=== PATIENT | male | born 1940 | race Caucasian/White ===

== ENCOUNTER 2016-10-19 17:52 | Emergency (ER) | payer BC ==
[~2016-10-19 17:52] MED LIST: ACYC-223 PO; AMLO2.5T PO; ASPI81TA28 PO; ATOR-22 PO; CALC500C3 PO; LISI-461 PO; LORA-741 PO; METO25TA3 PO; NTRGSL/4 UT; PRT/20 PO; RANI300T2 PO; TAMS0.4C38 PO
[2016-10-19 17:56] VITALS: TEMP 36.5
[2016-10-19] MEDS ORDERED: [UNRECOGNIZED DRUG - OTHER] PO (18:26)
--- NOTE | 2016-10-19 19:47 | DIAGNOSTIC IMAGING REPORT ---
LEFT FOREARM 2 VIEWS ROUTINE CLINICAL HISTORY: Left forearm pain status post trauma COMPARISON: None. DISCUSSION: No acute fractures are visualized. There are no subluxations. There is a prominent olecranon spur. IMPRESSION: Olecranon spur. No acute fractures identified Electronically signed by: Brandon Gauthier M.D. 10/19/2016 7:46 PM Dictated Date/Time: 10/19/2016 7:45 PM
[2016-10-19] MEDS ORDERED: NORCO 5/325MG HOME PACK PO ONE (20:45)
[2016-10-19 21:12] VITALS: BP 122/63; PULSE 59; O2SAT 97
--- NOTE | 2016-10-20 00:29 | EMERGENCY ROOM VISIT NOTE ---
History First contact with patient: 18:08 Chief Complaint: WRIST PAIN Stated Complaint: FALL,HURT LF ARM,IN CLINICAL TRIAL History of Present Illness The patient is a 75 year old male who presents to the Emergency Room with complaints of left forearm pain after falling at home earlier today. The patient states that he was trying to unfold a card table, when he lost his balance, fell, and struck his forearm. The patient did not strike his head or have laceration. He is without distinct pain of his wrist or elbow. His pain is essentially limited to the forearm itself. He does not have a history of injury to this area in the past. He rates his discomfort a 5/10. Review of Systems More than 10 systems were reviewed and otherwise negative with the exception of history of present illness. 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 (4) Esophageal Reflux (5) History Of Tobacco Use (6) Hypertension Nos (7) Personal History Of Colonic Polyps Surgical Problems: (1) H/O adenoidectomy (2) H/O hernia repair (3) History of tonsillectomy (4) Hx of appendectomy Family History Diabetes mellitus FATHER Heart disease FATHER (passed at age 74 from [place]) Stroke FATHER Social History Smoking Status: Former Smoker Alcohol Use: occasionally Drug Use: none Marital Status: Housing Status: lives with family Occupation Status: employed Current/Historical Medications Scheduled Acyclovir (Zovirax), 800 MG PO DAILY Aspirin (Aspirin Ec), 81 MG PO DAILY Atorvastatin (Lipitor), 20 MG PO DAILY Calcium Carbonate (Tums), 1 TAB PO DAILY Lisinopril (Zestril), 5 MG PO DAILY Metoprolol Succ (Toprol Xl) (Toprol-Xl), 25 MG PO DAILY Nitroglycerin (Nitrostat), 0.4 MG UT PRN Ranitidine Hcl (Zantac), 300 MG PO HS Tamsulosin Hcl (Flomax), 0.4 MG PO DAILY [[id number]], 1 CAP PO Q12 Scheduled PRN Lorazepam (Ativan), 0.5 MG PO BID PRN for Anxiety Allergies Coded Allergies: No Known Allergies (Verified Allergy, Unknown, 08/30/06) Physical Exam Vital Signs Date Time Temp Pulse Resp B/P (MAP) Pulse Ox O2 Delivery O2 Flow Rate FiO2 10/19/16 21:12 59 18 122/63 97 10/19/16 19:50 52 18 120/59 98 Room Air 10/19/16 17:56 36.5 59 20 151/80 97 Room Air Pain Rating (0-10): 3.0 Physical Exam VITALS: Vitals are noted on the nurse's note and reviewed by myself. Vital signs stable. GENERAL: Well-developed, well-nourished, white male, who is in no acute distress and resting comfortably. Patient is cooperative with the examination. HEAD: Normocephalic atraumatic. HEART: Regular rate and rhythm without murmurs gallops or rubs. LUNGS: Clear to auscultation bilaterally without wheezes, rales or rhonchi. No retractions or accessory muscle use. MUSCULOSKELETAL: Positive tenderness over the anterior left forearm. No significant laceration, abrasion, or contusion appreciated. No tenderness of the left elbow or wrist. No other injuries noted. Neurovascular status is intact distally. NEURO: Patient was alert and oriented to person place and time. CN II through XII grossly intact. Medical Decision & Procedures ER Provider Diagnostic Interpretation: LEFT FOREARM 2 VIEWS ROUTINE CLINICAL HISTORY: Left forearm pain status post trauma COMPARISON: None. DISCUSSION: No acute fractures are visualized. There are no subluxations. There is a prominent olecranon spur. IMPRESSION: Olecranon spur. No acute fractures identified Medications Administered Medications (Trade) Dose Ordered Sig/Xiomara Route Start Time Stop Time Status Last Admin Dose Admin Acetaminophen/ Hydrocodone Bitart (Harmony 5/325mg Home Pack) 1 homepack UD ONCE PO 10/19/16 20:45 10/19/16 20:46 DC 10/19/16 21:10 1 HOMEPACK ED Course Physical exam and history were performed. Nursing notes and EMR were reviewed. Patient appears to have follow-up at home and suffered injury to his forearm. X -ray was obtained and does not show evidence of acute fracture or dislocation. Overall the patient appears well and his exam is fairly benign. The patient will be treated conservatively with a home pack of Vicodin. He is to follow with his primary care physician with any ongoing or persistent symptoms. He was otherwise invited back to the ER anytime and rated his discomfort a 1/10 at the time of departure. The chart was completed utilizing Dragon Speech Voice Recognition Software. Grammatical errors, random word insertions, pronoun errors, and incomplete sentences are an occasional consequence of this system due to software limitations, ambient noise, and hardware issues. Any formal questions or concerns about the content, text, or information contained within the body of this dictation should be directly addressed to the provider for clarification. . Medical Decision Differential diagnoses includes, but is not limited to: Sprain, strain, fracture , dislocation, subluxation, contusion, and others Impression Primary Impression: Injury of left forearm Departure Information Dispostion Home / Self-Care Condition GOOD Forms HOME CARE DOCUMENTATION FORM, IMPORTANT VISIT INFORMATION Patient Instructions My [facility] Additional Instructions You were seen and evaluated today on an emergency basis only. This is not a substitute for, or an effort to provide, complete comprehensive medical care. It is not possible to recognize and treat all injuries or illnesses in a single emergency department visit. For this reason it is recommended that you followup with your primary care physician this week with any ongoing or persistent symptoms. Harmony (hydrocodone/acetaminophen) 5/325 mg (homepack) every 6 hours as needed for worsening breakthrough pain. Do not drink or drive on Harmony. This medication will likely make you tired. Do not take Harmony and Tylenol at the same time as both contain acetaminophen. Harmony may cause constipation. You may wish to take an [id number] stool softener like Colace if this occurs. You are welcome to return to the emergency department anytime with new, worsening, or concerning symptoms.
[2016-10-28] MEDS ORDERED: ZNTT/150 PO (13:42)
[2016-10-28] MEDS ORDERED: ACET325T96 PO (13:43)
[2016-12-07] MEDS ORDERED: RXC5 PO (08:18)
[2016-12-07] MEDS ORDERED: ASPEC325 PO (08:18)
[2017-01-19] MEDS ORDERED: SULF800T23 PO (15:56)
[2017-01-19] MEDS ORDERED: CEPH500C2 PO (15:56)
== END 2016-10-19 21:12 | disposition home or self-care (01) ==
LOC: C.EDB 17:54 → C.EDD 21:12
DX: S59.912A Unspecified injury of left forearm, initial encounter (principal); W18.39XA Other fall on same level, initial encounter; W22.8XXA Striking against or struck by other objects, initial encounter; Y93.89 Activity, other specified; Y99.8 Other external cause status; Y92.009 Unspecified place in unspecified non-institutional (private) residence as the place of occurrence of the external cause; C91.90 Lymphoid leukemia, unspecified not having achieved remission; K21.9 Gastro-esophageal reflux disease without esophagitis; I25.10 Atherosclerotic heart disease of native coronary artery without angina pectoris; I10 Essential (primary) hypertension; Z86.010 Personal history of colon polyps; Z87.891 Personal history of nicotine dependence; Z90.89 Acquired absence of other organs; Z98.890 Other specified postprocedural states; Z79.82 Long term (current) use of aspirin; Z79.899 Other long term (current) drug therapy

== ENCOUNTER 2016-12-05 05:31 | Inpatient (IN) | payer BC, OTHER ==
[2016-10-28 13:44] VITALS: Ht 167.6 cm; Wt 76.5 kg
--- NOTE | 2016-10-28 14:24 | PAT Medication Instructions ---
Service Date Oct 28, 2016. Current Home Medication List Acetaminophen Tab (Tylenol), 325 MG PO PRN Acyclovir (Zovirax), 400 MG PO BID Aspirin (Aspirin Ec), 81 MG PO QPM Atorvastatin (Lipitor), 20 MG PO QPM Calcium Carbonate (Tums), 1 TAB PO DAILY PRN for PRN Lisinopril (Zestril), 5 MG PO QPM Lorazepam (Ativan), 0.5 MG PO BID PRN for Anxiety Metoprolol Succ (Toprol Xl) (Toprol-Xl), 25 MG PO QPM Nitroglycerin (Nitrostat), 0.4 MG UT PRN Ranitidine (Zantac), 150 MG PO BID Tamsulosin Hcl (Flomax), 0.4 MG PO QPM [[id number]], 1 CAP PO Q12 Medication Instructions For Your Scheduled Surgery - Hold the following medications 2 weeks prior to surgery: [[id number]], 1 CAP PO Q12 - Hold the following medications the morning of surgery: Ranitidine (Zantac), 150 MG PO BID Calcium Carbonate (Tums), 1 TAB PO DAILY PRN for PRN - Take the following medications the morning of surgery with a sip of water: Nitroglycerin (Nitrostat), 0.4 MG UT PRN (if needed) Lorazepam (Ativan), 0.5 MG PO BID PRN for Anxiety (if needed) Acetaminophen Tab (Tylenol), 325 MG PO PRN (if needed) Acyclovir (Zovirax), 400 MG PO BID (takes per clinical trial with [id number]) - Hold the following medications as scheduled the night before surgery: Lisinopril (Zestril), 5 MG PO QPM - Take the following medications as scheduled the night before surgery: Tamsulosin Hcl (Flomax), 0.4 MG PO QPM Ranitidine (Zantac), 150 MG PO BID Metoprolol Succ (Toprol Xl) (Toprol-Xl), 25 MG PO QPM Nitroglycerin (Nitrostat), 0.4 MG UT PRN (if needed) Lorazepam (Ativan), 0.5 MG PO BID PRN for Anxiety (if needed) Calcium Carbonate (Tums), 1 TAB PO DAILY PRN for PRN (if needed) Atorvastatin (Lipitor), 20 MG PO QPM Aspirin (Aspirin Ec), 81 MG PO QPM (okay to take continue per surgeon) Acetaminophen Tab (Tylenol), 325 MG PO PRN (if needed) Acyclovir (Zovirax), 400 MG PO BID (takes per clinical trial with [id number]) If you have any questions please call us at [phone] or [phone] or [phone]
[2016-10-28 15:42] LABS: URINE APPEARANCE CLEAR (CLEAR); URINE BILIRUBIN NEG (NEG); URINE COLOR YELLOW; URINE NITRITE NEG (NEG); URINE PH 5.5 (4.5-7.5); URINE SPECIFIC GRAVITY 1.019 (1.000-1.030); UROBILINOGEN NEG (NEG)
[2016-10-28 15:45] LABS: PARTIAL THROMBOPLASTIN RATIO 1.1; PROTHROMBIN TIME (PATIENT) 11.1 SECONDS (9.0-12.0)
[2016-10-28 15:49] LABS: MANUAL MICROSCOPIC REQUIRED? NO; REVIEW REQ? NO
[2016-10-28 16:21] LABS: BUN/CREATININE RATIO 10.8 (10-20); CALCIUM 8.8 mg/dl (8.5-10.1); CREATININE 1.6 mg/dl (0.60-1.40); POTASSIUM 4.4 mmol/L (3.5-5.1)
[2016-10-28 16:37] LABS: HEMATOCRIT 45.5 % (42-52); LYMPH ABS # 6.37 K/uL (1.2-3.4); LYMPHOCYTE % 75.7 %; MEAN CELL VOLUME 99.3 fL (80-100); MEAN CORPUSCULAR HEMOGLOBIN 35.2 pg (25-34); MEAN CORPUSCULAR HGB CONC 35.4 g/dl (32-36); NEUTROPHILS % 22.6 %; PLATELET COUNT 133 K/uL (130-400); RED BLOOD COUNT 4.58 M/uL (4.7-6.1); WHITE BLOOD COUNT 8.42 K/uL (4.8-10.8)
[2016-10-28 16:42] LABS: SMUDGE CELLS PRESENT
[2016-10-28 17:14] LABS: COMPLETE YES
[2016-10-29 07:42] LABS: HYPERSEGMENTED POLYS 1+
--- NOTE | 2016-12-04 16:04 | HISTORY & PHYSICAL EXAMINATION ---
DATE OF ADMISSION: 12/05/2016 CHIEF COMPLAINT: Primary osteoarthritis of the left hip. HISTORY OF PRESENT ILLNESS: Tom is a very pleasant 76-year-old male who has been dealing with a several year history of increasing left hip pain. It hurts him when he goes up and down stairs and get in and out of a low car or when he internally rotates his hip to put on his shoes. He has been treated by primary care physician and had x-rays which showed advanced osteoarthritis of his hip. After failing conservative treatment, he elected to proceed with a left total hip arthroplasty. PAST MEDICAL HISTORY: Significant for heart disease, CLL, hypertension, hyperlipidemia, aortic valve disorder, CVA, TIA, and GERD. MEDICATIONS: Tylenol 325 mg as needed, acyclovir 400 mg twice a day, aspirin 81 mg daily, Lipitor 20 mg daily, Tums 1 tab as needed, Zestril 5 mg daily, Ativan 0.5 mg twice a day as needed, Toprol-XL 25 mg daily, Nitrostat 0.4 mg as needed, Zantac 150 mg twice a day, Flomax 0.4 mg at night. PAST SURGICAL HISTORY: Significant for hernia repair and appendectomy, tonsillectomy, and 3 cardiac stents placed. ALLERGIES: None. FAMILY HISTORY: Noncontributory. SOCIAL HISTORY: The patient is , has 6 kids, rarely drinks, and is moderately active. REVIEW OF SYSTEMS: He complains of left hip and groin pain. All other pertinent review of systems is negative. PHYSICAL EXAMINATION: GENERAL: He is awake, alert and oriented x3. He is in no apparent distress. He is very pleasant. HEENT: Pupils are equal, round and reactive to light. Extraocular motion intact. Oral mucosa is pink and moist. HEART: Regular rate per radial pulse. LUNGS: Arielle symmetrically bilaterally with no audible breath sounds. ABDOMEN: Soft, nontender, nondistended. MUSCULOSKELETAL: On physical examination of the left hip, he has a lot of tenderness to deep palpation of the left groin. He has very limited internal and external rotation. He has significant pain with forced internal rotation of his hip. His leg lengths are essentially equal. IMAGING DATA: X-rays from an outside institution show advanced osteoarthritis of the left hip. There is joint space narrowing and osteophyte formation. IMPRESSION: Advanced osteoarthritis, left hip. PLAN: We will proceed with a Biomet taper lock left total hip arthroplasty. Postoperatively, he will be started on aspirin for DVT prophylaxis and likely kept 2 midnights for postoperative medical management.
[2016-12-05] VITALS (12 sets, daily range): BP systolic 93–130; BP diastolic 54–69; PULSE 58–79; TEMP 36.3–36.8; O2SAT 95–100
[~2016-12-05] VITALS: Ht 167.6 cm; Wt 76.5 kg
[~2016-12-05 05:31] MED LIST changes: +ACET325T96 PO; -ACYC-223 PO; +ACYC-251 PO; -AMLO2.5T PO; -PRT/20 PO; -RANI300T2 PO; +ZNTT/150 PO; +[UNRECOGNIZED DRUG - OTHER] PO
[2016-12-05] MEDS ORDERED: TRANEXAMIC ACID INJ 1,000 MG in SODIUM CHLORIDE 0.9% 100ML 100 ML IV SCH (06:00)
[2016-12-05] MEDS ORDERED: LACTATED RINGER'S 1000ML 1,000 ML IV SCH (06:00)
[2016-12-05] MEDS ORDERED: GABAPENTIN 300 MG CAP PO SCH (06:00)
[2016-12-05] MEDS ORDERED: FAMOTIDINE 20 MG TAB PO SCH (06:00)
[2016-12-05] MEDS ORDERED: CEFAZOLIN 2000 MG/60 ML D5W 60 ML IV SCH (06:00)
[2016-12-05] MEDS ORDERED: LACTATED RINGER'S 1000ML IV SCH (06:00)
[2016-12-05] MEDS ORDERED: ROPIVACAINE 5MG/ML 30 ML 150 MG, BUPIVACAINE/EPINEPHR 0.5% MPF 30 ML, KETOROLAC TROMETH... INFIL SCH ×7 (06:00)
[2016-12-05] MEDS ORDERED: ACETAMINOPHEN 500 MG TAB PO SCH (06:00)
[2016-12-05] MEDS ORDERED: FENTANYL CITRATE INJ 50 MCG/1 ML 2 ML VIAL IV PRN (06:15)
[2016-12-05] MEDS ORDERED: HYDROmorphone INJ 1 MG/ML SYR IV PRN (06:15)
[2016-12-05] MEDS ORDERED: ONDANSETRON INJ 2 MG/ML 2 ML VIAL IV PRN ×2 (06:15→09:15)
[2016-12-05] MEDS ORDERED: EpHEDrine SULFATE INJ 50 MG/ML AMP IV PRN (06:15)
[2016-12-05] MEDS ORDERED: ATROPINE SULFATE 0.1 MG/ML 5ML SYR IV PRN (06:15)
--- NOTE | 2016-12-05 06:44 | History & Physical Bridge Note ---
H&P Re-Evaluation Bridge Note: I have examined the patient, reviewed the History & Physical and in the interval since the performance of the History & Physical I have noted the following changes of clinical significance: No changes noted
[2016-12-05] MEDS ORDERED: FENTANYL CITRATE INJ 50 MCG/1 ML 2 ML VIAL ONE (06:57)
[2016-12-05] MEDS ORDERED: MIDAZOLAM HCL 1 MG/ML 2ML VIAL ONE ×2 (06:57→07:54)
[2016-12-05] MEDS ORDERED: BUPIVACAINE 0.5 % 5 MG/1 ML PF 10ML VIAL ONE (07:14)
[2016-12-05] MEDS ORDERED: PROPOFOL IV EMULSION 10 MG/ML 20 ML VIAL IV ONE (07:16)
[2016-12-05] MEDS ORDERED: ONDANSETRON INJ 2 MG/ML 2 ML VIAL ONE (07:21)
[2016-12-05] MEDS ORDERED: BACITRACIN 50000 UNIT VIAL ONE (07:26)
[2016-12-05] MEDS ORDERED: ORTHO JOINT ANESTHETIC ONE (07:26)
[2016-12-05] MEDS ORDERED: PHENYLEPHRINE 100MCG/ML 5ML SYR ONE (07:28)
[2016-12-05] MEDS ORDERED: EpHEDrine SULFATE 50MG/5ML SYR ONE (08:05)
[2016-12-05] MEDS ORDERED: METOCLOPRAMIDE HCL INJ 5 MG/ML 2 ML VIAL IV PRN (09:15)
[2016-12-05] MEDS ORDERED: CALCIUM CARBONATE 500 MG CHEWABLE PO PRN (09:15)
[2016-12-05] MEDS ORDERED: NITROGLYCERIN 0.4 MG SL PER TAB CHARGE UT PRN (09:15)
[2016-12-05] MEDS ORDERED: LORAZEPAM 0.5 MG TAB PO PRN (09:15)
[2016-12-05] MEDS ORDERED: BISACODYL 10 MG SUPP PR PRN (09:15)
[2016-12-05] MEDS ORDERED: SILVER SULFADIAZINE 1% CR 50 GM JAR EXT PRN (09:15)
[2016-12-05] MEDS ORDERED: SOD PHOSPHATE/SOD BIPHOSPHATE ENEMA 132 ML BTL PR PRN (09:15)
[2016-12-05] MEDS ORDERED: MAGNESIUM HYDROXIDE SUSP 30 ML UDC PO PRN (09:15)
[2016-12-05] MEDS ORDERED: MoRPHine SULFATE 2 MG/ML CARP IV PRN (09:15)
--- NOTE | 2016-12-05 09:15 | [facility] Post Operative Brief Note ---
Immediate Operative Summary Operative Date Dec 05, 2016. Pre-Operative Diagnosis Advanced osteoarthritis, left hip Post-Operative Diagnosis Advanced osteoarthritis, left hip Procedure(s) Performed Left Anterior Total Hip Arthroplasty Surgeon Dr. Schwartz Transportation Job Titles Surgeon(s) Simone Hugo PA-C Estimated Blood Loss 250cc Findings as above Specimens A. Left femoral head Complication(s) None Disposition Recovery Room / PACU
--- NOTE | 2016-12-05 09:20 | DIAGNOSTIC IMAGING REPORT ---
LEFT HIP OR FILMS CLINICAL HISTORY: LEFT ANTERIOR TOTAL HIP ARTHROPLASTY COMPARISON STUDY: Pelvis radiograph September 22, 2016. FLUOROSCOPY TIME: 39.3 seconds. FINDINGS: A single intraoperative AP fluoroscopic image of the left hip demonstrates anatomic alignment of the left hip arthroplasty. There is an acetabular screw. No fracture or unexpected radiopaque foreign body is identified. IMPRESSION: Expected findings following total left hip arthroplasty. Electronically signed by: Sorin Smith M.D. 12/05/2016 9:19 AM Dictated Date/Time: 12/05/2016 9:17 AM
--- NOTE | 2016-12-05 09:50 | Anesthesiology Progress Note ---
Anesthesia Post Op Note Date & Time Dec 05, 2016 at 09:49 Vital Signs Pain Intensity: 0 Vital Signs Past 12 Hours Date Time Temp Pulse Resp B/P (MAP) Pulse Ox O2 Delivery O2 Flow Rate FiO2 12/05/16 09:45 66 16 92/52 98 Oxymask 2 12/05/16 09:35 65 16 108/62 98 Oxymask 10 12/05/16 09:25 76 16 104/49 100 Oxymask 10 12/05/16 09:17 36.2 61 16 118/62 100 Oxymask 10 12/05/16 06:12 36.8 76 18 130/69 95 Room Air Notes Mental Status: alert / awake / arousable, participated in evaluation Pt Amnestic to Procedure: Yes Nausea / Vomiting: adequately controlled Pain: adequately controlled Airway Patency, RR, SpO2: stable & adequate BP & HR: stable & adequate Hydration State: stable & adequate Neuraxial Anesthesia: was administered, sensory block is resolving Anesthetic Complications: no major complications apparent
--- NOTE | 2016-12-05 09:50 | OPERATIVE REPORT ---
DATE OF OPERATION: 12/05/2016 PREOPERATIVE DIAGNOSIS: Primary osteoarthritis of the left hip. POSTOPERATIVE DIAGNOSIS: Same. PROCEDURE: Left anterior total hip arthroplasty. SURGEON: Dr. Simone Schwartz. ACTIVITIES ATTENDANT: Simone Perez PA-C whose assistance was necessary to help with retraction. ANESTHESIA: Spinal. COMPLICATIONS: None. CONDITION: Stable to PACU. IMPLANTS USED: I used a Biomet Taperloc total hip arthroplasty with a size 52 mm G7 cup, a single 20 mm screw with a 36 mm neutral E1 poly liner and a 13 mm standard offset pressfit Taperloc stem and a 36 mm 0 neck ceramic head. INDICATIONS: Tom is a pleasant 76-year-old male who presented to my office with complaints of chronic left hip and groin pain. X-rays and clinical examination were diagnostic for primary osteoarthritis of the left hip. After failing conservative treatment, he elected to undergo a left total hip arthroplasty. OPERATION AND FINDINGS: On 12/05/2016 he arrived at [facility] for the above procedure. He was seen in the preoperative holding area and the operative extremity was identified and signed. He was given a preoperative antibiotic and a spinal anesthetic. He was taken back to the operating room, laid on the table in supine position and given basic sedation. The left leg was brought out to a Purist leg positioner. The left hip was then prepped and draped in sterile fashion. Time-out was done and the patient and operative extremity was properly identified. An anterior approach was used. Dissection was taken down to the tensor and the tensor was retracted laterally and the sartorius was retracted medially. The circumflex vessels were ligated and the reflected head of the rectus was elevated off the anterior capsule. A capsulotomy was then done and the femoral head was exposed. The femoral neck was then resected and the head was removed. The acetabulum was then exposed. Time was spent doing a complete circumferential capsular labral release. Sequential reaming was then done under fluoroscopy up to a size 51 reamer. A 52 mm cup was then impacted into place. A single 20 mm screw was placed. A 36 E1 neutral liner was then snapped into place. The surrounding soft tissues were then injected with 100 mL of orthopedic pain control cocktail. The proximal femur was then exposed with use of Purist leg positioner. Sequential broaching up to a size 13 broach was done. A standard head and neck assembly was applied. The hip was reduced and checked under fluoroscopy and I was happy with the size of the implant and the leg lengths. The hip was dislocated and the broach was removed. The final size 13 Taperloc stem was impacted into place. A 36 ceramic 0 neck was then impacted into place. The hip was reduced and final fluoroscopic images showed anatomic alignment. The wound was then irrigated. The capsule was then repaired using #1 Vicryl suture. A drain was placed. The total joint was irrigated with 3 liters of normal saline solution with bacitracin. The fascia was then closed with #1 Vicryl, skin was closed with 2-0 Vicryl and 3-0 V-Loc suture and a Prineo dressing. He was then placed in a soft dressing and taken to the postanesthesia care unit in stable condition. He tolerated the procedure well. I attest to the content of the Intraoperative Record and any orders documented therein. Any exception s are noted below.
[2016-12-05] MEDS: SODIUM CHLORIDE 0.9% 1000ML 1,000 ML IV SCH ×2 (11:18→18:29)
[2016-12-05] MEDS: ACETAMINOPHEN IV 1,000 MG in EMPTY BAG 0 ML IV SCH ×2 (11:47→20:49)
[2016-12-05] MEDS: KETOROLAC TROMETHAMINE 15 MG/ML VIAL IV. SCH ×3 (11:50→23:29)
--- NOTE | 2016-12-05 12:24 | DIAGNOSTIC IMAGING REPORT ---
LEFT PELVIS/UNILATERAL HIP 1 VIEW CLINICAL HISTORY: Left hip osteoarthritis. Arthroplasty. COMPARISON: Pelvis radiograph September 12, 2016. FINDINGS: Alignment of the total left hip arthroplasty is anatomic. There is no fracture or unexpected radiopaque foreign body. Acetabular screw is in place. There is a surgical drain. Cortical thickening of the bilateral femoral shafts is chronic. IMPRESSION: Expected findings following total left hip arthroplasty. Electronically signed by: Sorin Smith M.D. 12/05/2016 12:23 PM Dictated Date/Time: 12/05/2016 12:22 PM
[2016-12-05] MEDS: CEFAZOLIN IV 1,000 MG in DEXTROSE 5% 50ML 50 ML IV SCH ×2 (15:05→21:43)
[2016-12-05] MEDS: RANITIDINE HCL 150 MG TAB PO SCH (19:40)
[2016-12-05] MEDS: LISINOPRIL 5 MG TAB PO SCH (20:48)
[2016-12-05] MEDS: OXYCODONE HCL IR 5 MG TAB (IMMEDIATE RELEASE) PO PRN (20:48)
[2016-12-05] MEDS: ACYCLOVIR 400 MG TAB PO SCH (20:48)
[2016-12-05] MEDS: ASPIRIN 325 MG ECTAB PO SCH (20:49)
[2016-12-05] MEDS: TAMSULOSIN HCL 0.4 MG CAP PO SCH (20:49)
[2016-12-05] MEDS: SENNA 8.6 MG TAB PO SCH (20:49)
[2016-12-05] MEDS: DOCUSATE SODIUM 100 MG CAP PO SCH (20:49)
[2016-12-05] MEDS: METOPROLOL SUCC 25MG EXT REL TAB PO SCH (20:49)
[2016-12-05] MEDS: ATORVASTATIN 20 MG TAB PO SCH (20:50)
[2016-12-06 03:36] VITALS: BP 105/58; PULSE 71; TEMP 37; O2SAT 95
[2016-12-06] MEDS: SODIUM CHLORIDE 0.9% 1000ML 1,000 ML IV SCH (04:33)
[2016-12-06] MEDS: ACETAMINOPHEN IV 1,000 MG in EMPTY BAG 0 ML IV SCH (04:33)
[2016-12-06] MEDS: KETOROLAC TROMETHAMINE 15 MG/ML VIAL IV. SCH ×3 (05:40→20:04)
[2016-12-06 06:28] LABS: HEMATOCRIT 35.1 % (42-52); MEAN CELL VOLUME 98.3 fL (80-100); MEAN CORPUSCULAR HEMOGLOBIN 32.8 pg (25-34); MEAN CORPUSCULAR HGB CONC 33.3 g/dl (32-36); RED BLOOD COUNT 3.57 M/uL (4.7-6.1); WHITE BLOOD COUNT 3.89 K/uL (4.8-10.8)
[2016-12-06 06:58] LABS: COMPLETE YES; EOS % 0.5 %; HYPERSEGMENTED POLYS 1+; IG% 1.5 %; LYMPH % 30.8 %; MEAN PLATELET VOLUME 10.6 fL (7.4-10.4); MONO % 5.9 %; NEUT % 61.3 %; PLATELET COUNT 91 K/uL (130-400); PLT ESTIMATE DECREASED
[2016-12-06 07:07] LABS: BUN/CREATININE RATIO 13.2 (10-20); CALCIUM 8.2 mg/dl (8.5-10.1); CREATININE 1.1 mg/dl (0.60-1.40); POTASSIUM 4.4 mmol/L (3.5-5.1)
[2016-12-06 07:21] VITALS: BP 114/51; PULSE 72; TEMP 36.9; O2SAT 97
[2016-12-06] MEDS: PANTOprazole SOD 40 MG TAB PO SCH (09:00)
[2016-12-06] MEDS: RANITIDINE HCL 150 MG TAB PO SCH ×2 (09:19→20:01)
[2016-12-06] MEDS: ASPIRIN 325 MG ECTAB PO SCH ×2 (09:19→20:00)
[2016-12-06] MEDS: DOCUSATE SODIUM 100 MG CAP PO SCH ×2 (09:21→20:00)
[2016-12-06] MEDS: MULTIVITAMIN TAB PO SCH (09:21)
[2016-12-06] MEDS: ACYCLOVIR 400 MG TAB PO SCH ×2 (09:21→20:03)
[2016-12-06] MEDS: OXYCODONE HCL IR 5 MG TAB (IMMEDIATE RELEASE) PO PRN (09:24)
--- NOTE | 2016-12-06 09:25 | PROGRESS NOTE ---
DATE: 12/06/2016 DATE: 12/06/2016 CHIEF COMPLAINT: Status post left total hip arthroplasty postop day #1. PROGRESS: Tom was seen and examined at bedside today. Overall, he is doing very well. He has already been up and ambulating some. He is sitting comfortably at bedside eating breakfast, has very little pain and no complaints. PHYSICAL EXAMINATION: LEFT HIP: The dressing is clean and dry and the drain is to suction. He has active dorsiflexion and plantarflexion of his left ankle and his leg lengths are essentially equal. LABORATORIES: He has an H&H of 11.7 and 35.1. His glucose is 110. VITAL SIGNS: Mostly stable on room air, he is a little hypotensive. His is voiding on his own. He has not had a bowel movement yet. X-rays postoperatively of the left hip show the prosthesis to be in anatomic alignment with good taoist of leg lengths and no evidence of fracture, dislocation or loosening. IMPRESSION: Status post left total hip arthroplasty postop day #1. PLAN: At this point, he is doing very well. He will be seen by physical therapy today. We will continue to work on any pain control. Tomorrow morning the nursing staff can change the dressing, pull the drain and will discharge him to home.
[2016-12-06 11:46] VITALS: BP_SYST 102; BP_SYST 93; BP_DIAS 46; BP_DIAS 56; PULSE 67; O2SAT 96
[2016-12-06] MEDS: ACETAMINOPHEN 500 MG TAB PO SCH ×2 (14:46→21:43)
[2016-12-06 15:11] VITALS: BP 122/67; PULSE 70; TEMP 36.9; O2SAT 99
[2016-12-06] MEDS: SENNA 8.6 MG TAB PO SCH (20:01)
[2016-12-06] MEDS: LISINOPRIL 5 MG TAB PO SCH (20:02)
[2016-12-06] MEDS: ATORVASTATIN 20 MG TAB PO SCH (20:02)
[2016-12-06] MEDS: TAMSULOSIN HCL 0.4 MG CAP PO SCH (20:02)
[2016-12-06] MEDS: METOPROLOL SUCC 25MG EXT REL TAB PO SCH (20:03)
[2016-12-06 23:08] VITALS: BP 106/58; PULSE 71; TEMP 37; O2SAT 96
[2016-12-07] MEDS: KETOROLAC TROMETHAMINE 15 MG/ML VIAL IV. SCH ×2 (01:19→06:17)
[2016-12-07] MEDS: ACETAMINOPHEN 500 MG TAB PO SCH (05:54)
[2016-12-07 06:57] VITALS: BP 97/56; PULSE 60; TEMP 37.3; O2SAT 96
[2016-12-07] MEDS: DOCUSATE SODIUM 100 MG CAP PO SCH (07:22)
[2016-12-07] MEDS: PANTOprazole SOD 40 MG TAB PO SCH (07:22)
[2016-12-07] MEDS: RANITIDINE HCL 150 MG TAB PO SCH (07:22)
[2016-12-07] MEDS: ACYCLOVIR 400 MG TAB PO SCH (07:23)
[2016-12-07] MEDS: ASPIRIN 325 MG ECTAB PO SCH (07:23)
[2016-12-07] MEDS: MULTIVITAMIN TAB PO SCH (07:23)
[2016-12-07] MEDS: OXYCODONE HCL IR 5 MG TAB (IMMEDIATE RELEASE) PO PRN (07:25)
[2016-12-07] MEDS ORDERED: ASPEC325 PO (08:18)
[2016-12-07] MEDS ORDERED: RXC5 PO (08:18)
--- NOTE | 2016-12-07 08:19 | Discharge Instructions ---
Discharge Instructions Date of Service Dec 07, 2016. Admission Reason for Admission: Left Hip Osteoarthritis Discharge Discharge Diagnosis / Problem: Left total hip Discharge Goals Goal(s): Decrease discomfort, Improve function Activity Recommendations Activity Limitations: as noted below . Instructions / Follow-Up Instructions / Follow-Up Activity and Therapy Recommendations: * If you are using [facility] then Physical Therapy will be provided until they feel you are ready to start Outpatient Physical Therapy. If you are not using a Home Health agency then Outpatient Physical Therapy should start about 3-5 days from your day of surgery. Therapy will last about 3-6 weeks * You were shown a series of exercises in the hospital. Do these exercises three times each day including the exercises you were shown in physical therapy. * Get up and walk several times each day.~ For the first four weeks, try not to stand or walk for more than one hour at a time. If you do stand or walk for more than one hour, you will not hurt anything, but your leg will likely swell.~ ~ * As you feel comfortable, you may change from the walker or crutches to a cane and~then to independent walking. Medications: * Narcotic You will likely be sent home from the hospital with a prescription for the narcotic pain medication that worked best throughout your stay. * Aspirin Most patients will be required to take Aspirin 325mg twice a day for 6 weeks after surgery. This is obtained [id number] and a prescription is not necessary. * Other medications may be prescribed for specific circumstances. If you have any questions, please call the office at . * Resume previous home medications unless otherwise instructed TEDs/Elastic Stockings: The white elastic stockings help limit swelling and prevent blood clots from forming in your legs. The more you wear them, the more they work. Wear them for six weeks. Dressing Care: You will likely have a Prineo dressing covering your incision. This looks like a glued on clear mesh dressing. Do not remove this dressing until you follow- up in my office in 2-3 weeks. Its pretty hard to peel it off. You may leave the Prineo dressing uncovered or cover it if it is draining a little bit. No further dressing care is required Showering: You may shower 3 days from the day of surgery. Leave the Prineo dressing intact and let the soapy shower water run over it. Do not scrub or soak the dressing or the incision. Things To Watch For: * Drainage from the incision site that occurs more than one week after your surgery. * Increased redness at the incision site. * Fever above 102 degrees Fahrenheit. * Unusual chest pain or shortness of breath. * Call [facility] at with any of the above problems Follow-Up Visit: Follow-up with Dr. Schwartz 2-3 weeks after your day of surgery. An appointment was probably scheduled when you signed-up for surgery in the office. If you have any questions call Office Instructions: More detailed instructions as well as Frequently Asked Questions were provided in a folder by our office when you signed-up for surgery. Please review these instructions when you get home. If you have any further questions or concerns, please feel free to call the office at [phone] Current Hospital Diet Patient's current hospital diet: Regular Diet Discharge Diet Recommended Diet: Regular Diet Procedures Procedures Performed: Left Anterior Total Hip Arthroplasty Pending Studies Studies pending at discharge: no Medical Emergencies . Who to Call and When: Medical Emergencies: If at any time you feel your situation is an emergency, please call [phone] immediately. . Non-Emergent Contact Non-Emergency issues call your: Surgeon Call Non-Emergent contact if: wound has increased drainage, wound has increased redness . "Provider Documentation" section prepared by Simone Schwartz. . VTE Core Measure Inpt VTE Proph given/why not?: Other Anticoagulation (Aspirin 325 twice a day for 6 weeks)
[2016-12-07 08:33] VITALS: BP 98/60; PULSE 62; TEMP 36.8; O2SAT 98
--- NOTE | 2016-12-07 08:54 | PROGRESS NOTE ---
DATE: 12/07/2016 CHIEF COMPLAINT: Status post left total hip arthroplasty, postop day #2. PROGRESS: Tom was seen and examined at bedside today. Overall, he is doing very well. He has very little pain in his hip. He has worked well with physical therapy. He has no complaints. PHYSICAL EXAMINATION: LEFT HIP: The incision is clean and dry. The dressing has been changed and drain has been pulled earlier this morning. He is neurovascularly intact. IMPRESSION: Status post left anterior total hip arthroplasty, postop day #1. PLAN: At this point, doing very well and happy with his progress. He has been working well with physical therapy. His pain is controlled with the oxycodone. I am going to discharge him to home later this morning.
--- NOTE | 2016-12-07 09:08 | DISCHARGE SUMMARY ---
DISCHARGE DIAGNOSIS: Primary osteoarthritis of the left hip. PROCEDURE: Left anterior total hip arthroplasty on 12/05/[address] Simone Schwartz. DISCHARGE INSTRUCTIONS: 1. Aspirin 325 mg twice a day for 6 weeks. 2. OK hose stockings for 6 weeks. 3. Oxycodone 5-10 mg every 4 hours as needed for pain. 4. Tylenol 325 mg as needed. 5. Zovirax 400 mg twice a day. 6. Lipitor 20 mg daily. 7. Tums daily. 8. Zestril 5 mg daily. 9. Ativan 0.5 mg twice a day. 10. Toprol-XL 25 mg daily. 11. Nitrostat 0.4 mg as needed. 12. Zantac 150 mg twice a day. 13. Flomax 0.4 mg daily. 14. Weightbear as tolerated. 15. Follow up with Dr. Schwartz in 2 weeks. 16. Call the office of Dr. Schwartz with any questions or concerns. HOSPITAL COURSE: Tom is a pleasant 76-year-old male who presented to my office with chronic left hip pain. X-rays and clinical examination were diagnostic for primary osteoarthritis of the left hip. After failing conservative treatment, he elected to undergo a left total hip arthroplasty. On 12/05/2016, he arrived at [facility] and underwent a left anterior hip replacement without complications. He had a spinal anesthetic and postoperatively, he was started on aspirin 325 mg twice a day and discharged to general orthopedic floor. His hospital course was uneventful. On postop day #1, his H&H was stable at 11.7 and 35.1. He was able to get up and ambulate well with physical therapy. His pain was well controlled. On postop day #2, his dressing was changed and the drain was pulled. He continued to work well with therapy and he was subsequently discharged to home with the above instructions.
[2016-12-07 10:13] VITALS: BP 98/60; PULSE 62; TEMP 36.8; O2SAT 98
[2017-01-19] MEDS ORDERED: CEPH500C2 PO (15:56)
[2017-01-19] MEDS ORDERED: SULF800T23 PO (15:56)
== END 2016-12-07 11:28 | disposition home health service (06) | DRG 470 ==
LOC: C.ACU 05:31 → C.3E 06:30 → ENRESERV 09:42
PROVIDERS: ADMIT Orthopaedic Surgery; ATTEND Orthopaedic Surgery
PROC: 0SRB04Z Replacement of Left Hip Joint with Ceramic on Polyethylene Synthetic Substitute, Open Approach (ICD-10-PCS; principal; 2016-12-05 07:00)
DX: M16.12 Unilateral primary osteoarthritis, left hip (principal); C91.90 Lymphoid leukemia, unspecified not having achieved remission; I11.9 Hypertensive heart disease without heart failure; E78.5 Hyperlipidemia, unspecified; K21.9 Gastro-esophageal reflux disease without esophagitis; Z79.899 Other long term (current) drug therapy; Z79.82 Long term (current) use of aspirin; Z86.73 Personal history of transient ischemic attack (TIA), and cerebral infarction without residual deficits; Z95.5 Presence of coronary angioplasty implant and graft

== ENCOUNTER 2017-01-16 18:19 | Inpatient (IN) | payer BC, OTHER ==
[~2017-01-16] VITALS: Ht 167.6 cm; Wt 75.4 kg
[~2017-01-16 18:19] MED LIST changes: +ASPEC325 PO; -ASPI81TA28 PO; +RXC5 PO
[2017-01-16 19:24] LABS: BASO % 0.3 %; BASO ABS # 0.02 K/uL (0-0.2); COMPLETE YES; EOS % 0.4 %; HEMATOCRIT 40.1 % (42-52); IG% 1.3 %; LYMPH % 31.7 %; LYMPH ABS # 2.26 K/uL (1.2-3.4); MEAN CELL VOLUME 97.8 fL (80-100); MEAN CORPUSCULAR HGB CONC 32.7 g/dl (32-36); MEAN PLATELET VOLUME 10.8 fL (7.4-10.4); MONO % 5.2 %; NEUT % 61.1 %; PLATELET COUNT 144 K/uL (130-400); WHITE BLOOD COUNT 7.12 K/uL (4.8-10.8)
[2017-01-16 19:36] LABS: INR 1.1 (0.9-1.1); PARTIAL THROMBOPLASTIN RATIO 1.1; PROTHROMBIN TIME (PATIENT) 11.3 SECONDS (9.0-12.0)
[2017-01-16 19:43] LABS: CALCIUM 8.5 mg/dl (8.5-10.1); CREATININE 1.4 mg/dl (0.60-1.40)
[2017-01-16 19:45] LABS: ALB/GLOB RATIO 1.2 (0.9-2); C-REACTIVE PROTEIN 0.68 mg/dl (0-0.29)
--- NOTE | 2017-01-16 20:12 | DIAGNOSTIC IMAGING REPORT ---
CHEST 2 VIEWS ROUTINE CLINICAL HISTORY: eval for pnea pain COMPARISON STUDY: 10/19/2013 FINDINGS: Mild atelectasis left base. Lungs otherwise are clear. No evidence for cardiac enlargement. IMPRESSION: Mild atelectasis left base. Otherwise negative study The above report was generated using voice recognition software. It may contain grammatical, syntax or spelling errors. Electronically signed by: Ruperto Law M.D. 01/16/2017 8:11 PM Dictated Date/Time: 01/16/2017 8:10 PM
--- NOTE | 2017-01-16 20:13 | DIAGNOSTIC IMAGING REPORT ---
LEFT HIP UNILATERAL 2 VIEWS CLINICAL HISTORY: eval for fluid left hip pain COMPARISON: None. DISCUSSION: Total left upper placement good position. Good contact between prosthetic and underlying bone. No acute abnormality. There is no evidence for soft tissue swelling. IMPRESSION: Negative study status post total left hip arthroplasty The above report was generated using voice recognition software. It may contain grammatical, syntax or spelling errors. Electronically signed by: Ruperto Law M.D. 01/16/2017 8:12 PM Dictated Date/Time: 01/16/2017 8:11 PM
[2017-01-16 20:16] LABS: LYME DISEASE AB IGG NEG (NEG); LYME DISEASE AB IGM NEG (NEG)
[2017-01-16] MEDS ORDERED: VANCOMYCIN 1GM/270ML NSS IV STA (21:18)
[2017-01-16] MEDS ORDERED: PIPERACILLIN/TAZOBACTAM 4.5 GM/100ML D5W IV STA (21:18)
[2017-01-16 21:57] VITALS: O2SAT 97
[2017-01-16] MEDS ORDERED: PIPERACILL/TAZOBAC CONSULT ACTIVE PRN (23:00)
[2017-01-16] MEDS ORDERED: OXYCODONE HCL IR 5 MG TAB (IMMEDIATE RELEASE) PO PRN (23:00)
[2017-01-16] MEDS ORDERED: LORAZEPAM 0.5 MG TAB PO PRN (23:00)
[2017-01-16] MEDS ORDERED: ACETAMINOPHEN 325 MG TAB PO PRN (23:00)
[2017-01-16 23:15] VITALS: BP 103/58; PULSE 80; TEMP 36.9; O2SAT 96
[2017-01-16] MEDS ORDERED: VANCOMYCIN CONSULT ACTIVE PRN (23:15)
[2017-01-16] MEDS: SODIUM CHLORIDE 0.9% 1000ML 1,000 ML IV SCH (23:17)
[2017-01-16] MEDS: VANCOMYCIN INJ 850 MG in SODIUM CHLORIDE 0.9% 250ML 250 ML IV STA (23:17)
--- NOTE | 2017-01-16 23:21 | History and Physical ---
History & Physical Date & Time of Service: Jan 16, 2017 at 23:00 Chief Complaint: FEVER Primary Care Physician: Fabby Major D.O. 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 Patient follows with Dr. Major for PCP and Dr. Rhiannon Luke MD at the [facility] in [place], [place]. He has been part of a clinical research trial and has been taking Acalabrutinib since 2014. Patient states that he has been doing fine since his left hip arthroplasty last November 2016. Recently, patient has been having intermittent left hip pain which he attributes to not using his cane. Today, patient received a flu vaccine around 1pm and 2 hours later, suddenly developed severe chills. His temp was 101. He then call the [facility] and was advised to go to the ER. At the, ER patient was received afebrile, with no leukocytosis. Left hip surgical site showed healing incision site with surrounding erythema extending to the left buttock Hip Xray: DISCUSSION: Total left upper placement good position. Good contact between prosthetic and underlying bone. No acute abnormality. There is no evidence for soft tissue swelling. IMPRESSION: Negative study status post total left hip arthroplasty Patient was evaluated by [facility] c/o Dr. Linares and was advised admission. On exam, patient seen resting in bed, comfortable. State he has minimal pain on the left hip. Denies headache, dizziness, nausea, sore throat, nasal congestion, chest pain, cough, abdominal pain, problems with urination or BM. 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 (3) Coronary Atherosclerosis Of [place] Coronary Vessel Status: Chronic (4) Esophageal Reflux Status: Chronic (5) History Of Tobacco Use Status: Chronic (6) Hypertension Nos Status: Chronic (7) Personal History Of Colonic Polyps Status: Resolved Surgical Problems: (1) H/O adenoidectomy Status: Resolved (2) H/O hernia repair Status: Resolved (3) History of tonsillectomy Status: Resolved (4) Hx of appendectomy Status: Resolved Family History Diabetes mellitus FATHER Heart disease FATHER (passed at age 74 from [place]) Stroke FATHER Social History Smoking Status: Former Smoker Drug Use: none Marital Status: Housing status: lives with family Occupational Status: employed Immunizations History of Influenza Vaccine: No History of Tetanus Vaccine?: No Tetanus Immunization Date: Jul 30, 2006 History of Pneumococcal: Yes Pneumococcal Date: September 29, 2007 History of Hepatitis B Vaccine: No Multi-Drug Resistant Organisms History of MDRO: No Allergies Coded Allergies: No Known Allergies (Verified , 12/05/16) Home Medications Scheduled Acetaminophen Tab (Tylenol), 325 MG PO PRN Acyclovir (Zovirax), 400 MG PO BID Aspirin (Aspirin), 325 MG PO BID Atorvastatin (Lipitor), 20 MG PO QPM Lisinopril (Zestril), 5 MG PO QPM Metoprolol Succ (Toprol Xl) (Toprol-Xl), 25 MG PO QPM Nitroglycerin (Nitrostat), 0.4 MG UT PRN Ranitidine (Zantac), 150 MG PO BID Tamsulosin Hcl (Flomax), 0.4 MG PO QPM [[id number]], 1 CAP PO Q12 Scheduled PRN Calcium Carbonate (Tums), 1 TAB PO DAILY PRN for PRN Lorazepam (Ativan), 0.5 MG PO BID PRN for Anxiety Oxycodone HCl (Oxycodone HCl), 5-10 MG PO Q4H PRN for Pain Review of Systems Constitutional- (+) as noted above Eyes- no acute visual changes ENT- no sinus drainage; no pharyngitis Pulmonary- no cough, no wheezing, no shortness of breath Cardiac- no chest pain, no palpitations, no orthopnea, no dependent edema GI- no nausea, no vomiting, no diarrhea, no melena, no hematochezia - no dysuria, no hematuria Musculoskeletal- (+) as noted above Derm- no rashes, no new skin lesions, no changing skin lesions Hematologic- no unusual bruising, no unusual bleeding Lymphatics- no adenopathy Endocrine- no polyuria or polydipsia; no heat or cold intolerance Neuro- no headaches, no focal neurologic symptoms Psych- no anxiety, no depression Physical Exam Vital Signs Date Time Temp Pulse Resp B/P (MAP) Pulse Ox O2 Delivery O2 Flow Rate FiO2 01/16/17 21:57 88 16 121/65 97 Room Air 01/16/17 20:03 92 16 93/55 97 Room Air 01/16/17 19:17 94 Room Air 01/16/17 19:12 94 01/16/17 18:23 37.0 87 20 109/56 95 Room Air General Appearance: WD/WN, no apparent distress Head: normocephalic, atraumatic Eyes: normal inspection, EOMI, sclerae normal ENT: normal ENT inspection, hearing grossly normal, pharynx normal Neck: supple, no adenopathy, thyroid normal, no JVD, trachea midline Respiratory/Chest: chest non-tender, lungs clear, normal breath sounds, no respiratory distress, no accessory muscle use Cardiovascular: regular rate, rhythm, no edema, no JVD, no murmur, normal peripheral pulses Abdomen/GI: normal bowel sounds, non tender, soft, no organomegaly Back: normal inspection, no CVA tenderness Extremities/Musculoskelatal: no calf tenderness, no pedal edema, + pertinent finding (left hip: surigical incision well healed, small opening on the proximal aspect but no discharge, (+) surrounding erythema extending to left buttock, no tenderness, mild warmth) Neurologic/Psych: dynamite reclaimer II-XII nml as tested, no motor/sensory deficits, alert, normal mood/affect, oriented x 3 Skin: normal color, warm/dry, no rash Lymphatic: no adenopathy Diagnostics Laboratory Results Results Past 24 Hours Test 01/16/17 19:05 01/16/17 19:13 Range/Units White Blood Count 7.12 4.8-10.8 K/uL Red Blood Count 4.10 4.7-6.1 M/uL Hemoglobin 13.1 14.0-18.0 g/dL Hematocrit 40.1 42-52 % Mean Corpuscular Volume 97.8 80-100 fL Mean Corpuscular Hemoglobin 32.0 25-34 pg Mean Corpuscular Hemoglobin Concent 32.7 32-36 g/dl Platelet Count 144 130-400 K/uL Mean Platelet Volume 10.8 7.4-10.4 fL Neutrophils (%) (Auto) 61.1 % Lymphocytes (%) (Auto) 31.7 % Monocytes (%) (Auto) 5.2 % Eosinophils (%) (Auto) 0.4 % Basophils (%) (Auto) 0.3 % Neutrophils # (Auto) 4.35 1.4-6.5 K/uL Lymphocytes # (Auto) 2.26 1.2-3.4 K/uL Monocytes # (Auto) 0.37 0.11-0.59 K/uL Eosinophils # (Auto) 0.03 0-0.5 K/uL Basophils # (Auto) 0.02 0-0.2 K/uL RDW Standard Deviation 47.5 36.4-46.3 fL RDW Coefficient of Variation 13.3 11.5-14.5 % Immature Granulocyte % (Auto) 1.3 % Immature Granulocyte # (Auto) 0.09 0.00-0.02 K/uL Erythrocyte Sedimentation Rate 3 0-14 mm/hr Prothrombin Time 11.3 9.0-12.0 SECONDS Prothromb Time International Ratio 1.1 0.9-1.1 Activated Partial Thromboplast Time 27.7 21.0-31.0 SECONDS Partial Thromboplastin Ratio 1.1 Sodium Level 138 136-145 mmol/L Potassium Level 4.0 3.5-5.1 mmol/L Chloride Level 107 98-107 mmol/L Carbon Dioxide Level 26 21-32 mmol/L Anion Gap 5.0 3-11 mmol/L Blood Urea Nitrogen 18 7-18 mg/dl Creatinine 1.40 0.60-1.40 mg/dl Est Creatinine Clear Calc Drug Dose 41.7 ml/min Estimated GFR () 57.0 Estimated GFR (Non- 49.1 BUN/Creatinine Ratio 13.0 10-20 Random Glucose 117 70-99 mg/dl Calcium Level 8.5 8.5-10.1 mg/dl Total Bilirubin 0.4 0.2-1 mg/dl Aspartate Amino Transf (AST/SGOT) 17 15-37 U/L Alanine Aminotransferase (ALT/SGPT) 15 12-78 U/L Alkaline Phosphatase 90 45-117 U/L C-Reactive Protein 0.68 0-0.29 mg/dl Total Protein 6.0 6.4-8.2 gm/dl Albumin 3.3 3.4-5.0 gm/dl Globulin 2.7 2.5-4.0 gm/dl Albumin/Globulin Ratio 1.2 0.9-2 Lyme Disease IgG Antibody NEG NEG Lyme Disease IgM Antibody NEG NEG Bedside Lactic Acid Venous 1.17 0.90-1.70 mmol/L Microbiology Results 01/16/17 Blood Culture, Received Pending 01/16/17 Blood Culture, Received Pending Diagnostic Radiology hip xray per H&P CHEST 2 VIEWS ROUTINE CLINICAL HISTORY: eval for pnea pain COMPARISON STUDY: 10/19/2013 FINDINGS: Mild atelectasis left base. Lungs otherwise are clear. No evidence for cardiac enlargement. IMPRESSION: Mild atelectasis left base. 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 FEVER, LEFT HIP CELLULITIS, POSSIBLE SEPTIC ARTHRITIS S/P LEFT HIP ARTHROPLASTY NOVEMBER 2016 ON CHRONIC ACALABRUTINIB - no signs of sepsis - ff up blood cultures - empiric Vanco and Zosyn IV IV fluids - HOLD Acalabrutinib please contact Dr. Rhiannon Luke at [facility] re: Acalabrutinib in the setting of infection at [phone] /or [phone] - Ortho consulted ID consulted - PT/OT CLL diagnosed [address] Rhiannon Luke MD at the [facility] in [place], [place]. He has been part of a clinical research trial and has been taking Acalabrutinib since 2014. - - HOLD Acalabrutinib please contact Dr. Rhiannon Luke at [facility] re: Acalabrutinib in the setting of infection at [phone] /or [phone] - continue Zovirax CAD HISTORY OF STENT PLACEMENT no cardiac symptoms continue Metoprolol hold Aspirin for possible ortho procedure, if none, resume immediately hold Lisinopril for borderline BP HYPERTENSION continue Metoprolol hold Lisinopril for borderline BP CKD 3 stable BPH? on Flomax has urinary hesitancy ff up with Urologist ff up UA and Urine Culture DVT PROPHYLAXIS SCDs hold anticoag in light of possible ortho procedure FULL CODE PER PATIENT DISPO anticipate d/c at home lives with , independent Dr. Major for PCP [facility] in [place] for CLL VTE Prophylaxis VTE Risk Assessment Done? Y/N: Yes Risk Level: Moderate Given or contraindicated: SCD's
[2017-01-16 23:25] VITALS: Ht 167.6 cm; Wt 75.4 kg
--- NOTE | 2017-01-16 23:54 | ORTHOPEDIC CONSULTATION ---
DATE OF CONSULTATION: 01/16/2017 CHIEF COMPLAINT: Fever and left hip redness. HISTORY OF PRESENT ILLNESS: The patient is a 76-year-old male, 6 weeks status post a left total hip replacement done by Dr. Schwartz. He had an uneventful postoperative course until earlier today when he developed a feeling of illness and chills. He took his temperature, which was 101. He came to the Emergency Room for evaluation and it was at that time discovered that he had erythema around his left hip. He has had mild discomfort of the left hip but no alteration in his gait and no recent injuries. Yesterday, he did not have any erythema as both he and his had looked at the incision. He has chronic lymphocytic leukemia and is on a medication called acalabrutinib. He also takes acyclovir. PAST MEDICAL HISTORY: Significant for heart disease and chronic lymphocytic leukemia. MEDICATIONS: Include the aforementioned plus lisinopril, Toprol, aspirin, Flomax, ranitidine. ALLERGIES: He has no known drug allergies. PAST SURGICAL HISTORY: He has had tonsils removed, appendix, left total hip, and cardiac stents. REVIEW OF SYSTEMS: He denies any liver or kidney disease or any disorder for bleeding or blood clotting. PHYSICAL EXAMINATION He has intact active leg raises bilaterally. He has excellent range of motion of the left hip without any discomfort. He has 5/5 ankle and toe plantar flexion, dorsiflexion, knee flexion and extension. His sensation is normal in both feet and he has 2+ dorsalis pedis pulses bilaterally. Examination of the left hip reveals an anterior incision. The most proximal extent of the incision is a 1 cm area, about 2 mm thick of eschar. This is debrided using a suture removal kit. This is a shallow cavity without any purulence to be expressed with some underlying desiccated fat. There is no drainage. The remainder of the incision is well healed. There is moderately intense erythema, slightly anterior but mostly posterior towards the buttock. This area is minimally tender, it has no fluctuance. It is indurated. LABORATORY DATA: The patient is afebrile. His white blood cell count is normal. His sed rate is normal. His C-reactive protein is minimally elevated at 0.68. Coags are normal. Lyme test is negative. Hematocrit is 40, sed rate 3. Other medical problems include GERD, TIA, CVA, aortic valve disorder, hyperlipidemia, hypertension. IMPRESSION: Left hip cellulitis status post left total hip arthroplasty. PLAN: I think that he has developed cellulitis of his left hip incisional area. This appears to be superficial and very early. He does not have any evidence of fluid collection which requires draining. His x-ray looks fine. I do not think that this represents a deep infection. He has not had any ongoing wound healing problems other than that mentioned above. I would recommend that patient be admitted to the hospital for broad spectrum IV antibiotics such as vancomycin and Zosyn. We can monitor his wound and labs. This is particularly important, I think given his history of CLL and his chemotherapy type medication. We will coordinate care with the medicine and contact Dr. Schwartz if he is available tomorrow. I do not think any surgery is necessary. He is currently not on any DVT prophylaxis and I do not think he requires any at this point. He can be up as tolerated. Mechanical devices would be fine, but I do not think that he needs to be on chemoprophylaxis other than aspirin. He is not a diabetic. Radiographs of the hip are reviewed revealing a well positioned uncomplicated total hip arthroplasty without evidence of dislocation or fracture. NAM
--- NOTE | 2017-01-17 00:45 | EMERGENCY ROOM VISIT NOTE ---
History Report prepared by Francis: Theodora Garsia Under the Supervision of: Dr. Oscar Brown M.D. First contact with patient: 18:33 Chief Complaint: FEVER Stated Complaint: FEVER AFTER FLU SHOT AT 1300 History of Present Illness The patient is a 76 year old male who presents to the Emergency Room with complaints of persistent fever starting around 1530 today. The patient took his temperature around 1530 and found that it was 101. He took some Tylenol around 1600. He notes that he received the flu shot today at 1300. He has never had a fever from receiving the flu shot before. He was not feeling ill before the flu shot. He had some chills also. He denies any cough, cold symptoms, headache, abdominal pain, urinary symptoms, nausea, or rash. He had a left hip replacement 6 weeks ago. He is having a small amount of pain. He has not noticed any redness or swelling. He denies any recent tick bites. He has a history of CLL which was diagnosed in 2006. He is currently undergoing a clinical trial. He is taking a chemo medication 2 times a day. He has a history of heart disease and has [address] Source of History: patient Onset: 1530 Position: other (global) Symptom Intensity: 101 Quality: other (fever) Timing: other (persistent) Associated Symptoms: + chills, No headache, No cough, No nausea, No abdominal pain, No urinary symptoms, No rash Review of Systems See HPI for pertinent positives & negatives. A total of 10 systems reviewed and were otherwise negative. 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 (3) Coronary Atherosclerosis Of [place] Coronary Vessel (4) Esophageal Reflux (5) Fever (6) History Of Tobacco Use (7) Hypertension Nos (8) Osteoarthritis of hip (9) Personal History Of Colonic Polyps Surgical Problems: (1) H/O adenoidectomy (2) H/O hernia repair (3) History of tonsillectomy (4) Hx of appendectomy Family History Diabetes mellitus FATHER Heart disease FATHER (passed at age 74 from [place]) Stroke FATHER Social History Smoking Status: Former Smoker Alcohol Use: occasionally Drug Use: none Marital Status: Housing Status: lives with family Occupation Status: employed Current/Historical Medications Scheduled Acetaminophen Tab (Tylenol), 325 MG PO PRN Acyclovir (Zovirax), 400 MG PO BID Aspirin (Aspirin), 325 MG PO BID Atorvastatin (Lipitor), 20 MG PO QPM Lisinopril (Zestril), 5 MG PO QPM Metoprolol Succ (Toprol Xl) (Toprol-Xl), 25 MG PO QPM Nitroglycerin (Nitrostat), 0.4 MG UT PRN Ranitidine (Zantac), 150 MG PO BID Tamsulosin Hcl (Flomax), 0.4 MG PO QPM [[id number]], 1 CAP PO Q12 Scheduled PRN Calcium Carbonate (Tums), 1 TAB PO DAILY PRN for PRN Lorazepam (Ativan), 0.5 MG PO BID PRN for Anxiety Oxycodone HCl (Oxycodone HCl), 5-10 MG PO Q4H PRN for Pain Allergies Coded Allergies: No Known Allergies (Verified , 12/05/16) Physical Exam Vital Signs Date Time Temp Pulse Resp B/P (MAP) Pulse Ox O2 Delivery O2 Flow Rate FiO2 01/16/17 20:03 92 16 93/55 97 Room Air 01/16/17 19:17 94 Room Air 01/16/17 19:12 94 01/16/17 18:23 37.0 87 20 109/56 95 Room Air Physical Exam Constitutional: Vital signs reviewed. Eyes: Pupils are equal round reactive to light. Conjunctiva are noninjected. ENT: Pharynx is clear without erythema or exudate. Mucous membranes are moist. Neck supple without meningeal signs. Respiratory: Clear to auscultation bilaterally. Breath sounds are equal bilaterally. Cardiovascular: Regular rate and rhythm. No rubs or gallops. GI: Soft, nondistended and nontender. Bowel sounds are present. Musculoskeletal: No peripheral edema. Minimal hip tenderness with healing incision, large area of increased erythema and warmth, full ROM of the hip without eliciting significant pain. Integumentary: No cyanosis. Neurological: The patient is awake and alert. No focal deficits. Psychiatric: Normal affect. Medical Decision & Procedures ER Provider Diagnostic Interpretation: X-ray results as stated below per interpretation by me and the radiologist: CHEST 2 VIEWS ROUTINE CLINICAL HISTORY: eval for pnea pain COMPARISON STUDY: 10/19/2013 FINDINGS: Mild atelectasis left base. Lungs otherwise are clear. No evidence for cardiac enlargement. IMPRESSION: Mild atelectasis left base. Otherwise negative study The above report was generated using voice recognition software. It may contain grammatical, syntax or spelling errors. Electronically signed by: Ruperto Law M.D. 01/16/2017 8:11 PM Dictated Date/Time: 01/16/2017 8:10 PM LEFT HIP UNILATERAL 2 VIEWS CLINICAL HISTORY: eval for fluid left hip pain COMPARISON: None. DISCUSSION: Total left upper placement good position. Good contact between prosthetic and underlying bone. No acute abnormality. There is no evidence for soft tissue swelling. IMPRESSION: Negative study status post total left hip arthroplasty The above report was generated using voice recognition software. It may contain grammatical, syntax or spelling errors. Electronically signed by: Ruperto Law M.D. 01/16/2017 8:12 PM Dictated Date/Time: 01/16/2017 8:11 PM Laboratory Results 01/16/17 19:05 Red Blood Count 4.10, Mean Corpuscular Volume 97.8, Mean Corpuscular Hemoglobin 32.0, Mean Corpuscular Hemoglobin Concent 32.7, Mean Platelet Volume 10.8, Neutrophils (%) (Auto) 61.1, Lymphocytes (%) (Auto) 31.7, Monocytes (%) (Auto) 5.2, Eosinophils (%) (Auto) 0.4, Basophils (%) (Auto) 0.3, Neutrophils # (Auto) 4.35, Lymphocytes # (Auto) 2.26, Monocytes # (Auto) 0.37, Eosinophils # (Auto) 0.03, Basophils # (Auto) 0.02 01/16/17 19:05 Test 01/16/17 19:05 01/16/17 19:13 White Blood Count 7.12 K/uL (4.8-10.8) Red Blood Count 4.10 M/uL (4.7-6.1) Hemoglobin 13.1 g/dL (14.0-18.0) Hematocrit 40.1 % (42-52) Mean Corpuscular Volume 97.8 fL (80-100) Mean Corpuscular Hemoglobin 32.0 pg (25-34) Mean Corpuscular Hemoglobin Concent 32.7 g/dl (32-36) Platelet Count 144 K/uL (130-400) Mean Platelet Volume 10.8 fL (7.4-10.4) Neutrophils (%) (Auto) 61.1 % Lymphocytes (%) (Auto) 31.7 % Monocytes (%) (Auto) 5.2 % Eosinophils (%) (Auto) 0.4 % Basophils (%) (Auto) 0.3 % Neutrophils # (Auto) 4.35 K/uL (1.4-6.5) Lymphocytes # (Auto) 2.26 K/uL (1.2-3.4) Monocytes # (Auto) 0.37 K/uL (0.11-0.59) Eosinophils # (Auto) 0.03 K/uL (0-0.5) Basophils # (Auto) 0.02 K/uL (0-0.2) RDW Standard Deviation 47.5 fL (36.4-46.3) RDW Coefficient of Variation 13.3 % (11.5-14.5) Immature Granulocyte % (Auto) 1.3 % Immature Granulocyte # (Auto) 0.09 K/uL (0.00-0.02) Erythrocyte Sedimentation Rate 3 mm/hr (0-14) Prothrombin Time 11.3 SECONDS (9.0-12.0) Prothromb Time International Ratio 1.1 (0.9-1.1) Activated Partial Thromboplast Time 27.7 SECONDS (21.0-31.0) Partial Thromboplastin Ratio 1.1 Anion Gap 5.0 mmol/L (3-11) Est Creatinine Clear Calc Drug Dose 41.7 ml/min Estimated GFR () 57.0 Estimated GFR (Non- 49.1 BUN/Creatinine Ratio 13.0 (10-20) Calcium Level 8.5 mg/dl (8.5-10.1) Total Bilirubin 0.4 mg/dl (0.2-1) Aspartate Amino Transf (AST/SGOT) 17 U/L (15-37) Alanine Aminotransferase (ALT/SGPT) 15 U/L (12-78) Alkaline Phosphatase 90 U/L (45-117) C-Reactive Protein 0.68 mg/dl (0-0.29) Total Protein 6.0 gm/dl (6.4-8.2) Albumin 3.3 gm/dl (3.4-5.0) Globulin 2.7 gm/dl (2.5-4.0) Albumin/Globulin Ratio 1.2 (0.9-2) Lyme Disease IgG Antibody NEG (NEG) Lyme Disease IgM Antibody NEG (NEG) Bedside Lactic Acid Venous 1.17 mmol/L (0.90-1.70) Laboratory results as reviewed by me. Medications Administered Medications (Trade) Dose Ordered Sig/Xiomara Route Start Time Stop Time Status Last Admin Dose Admin Vancomycin HCl (Vancomycin 1gm/ 270ml Nss) 1 gm NOW STAT IV 01/16/17 21:18 01/16/17 21:19 DC 01/16/17 21:56 1 GM Piperacillin Sod/ Tazobactam Sod (Zosyn Iv) 4.5 gm NOW STAT IV 01/16/17 21:18 01/16/17 21:19 DC 01/16/17 21:34 4.5 GM ED Course 1832: The patient was evaluated in room A3. A complete history and physical exam was performed. 2049: I discussed the patient's case with Dr. Linares, [facility] orthopedic surgery. He will come evaluate the patient. 2114: Dr. Linares has evaluated the patient and recommends admission to the hospitalist service. 2117: Zosyn Iv 4.5 gm IV, Vancomycin HCl 1 gm IV. 2122: I spoke with Dr. Lance of [facility]. We discussed the patient and his results. The patient will be further evaluated by him. 2130: I reevaluated the patient. He is resting comfortably. I discussed the test results with him. He verbalized agreement of the treatment plan. He will be evaluated for further management. Medical Decision This is a 76-year-old male who presents with fever. Differential diagnosis includes wound infection, cellulitis, viral illness, Lyme disease, postvaccination fever, pneumonia, neutropenia. I did perform a limited focused review of portions of the patient's old chart on the electronic medical record. The patient was here 12/05 for left hip replacement. I did evaluate the patient as noted above. IV access was established. The patient presents with a fever today. He does have cellulitis to his left leg over his left hip. Blood cultures were ordered. I did order and personally review the patient's chest x-ray as described above. I did order and review the patient's blood work as noted in the electronic medical record. I did discuss the case with the orthopedic physician. He did evaluate the patient in the ED. He did recommend IV antibiotics and hospitalization to the hospitalist service. I did discuss case with the hospitalist and porter sample case. I did treat him with IV vancomycin and Zosyn. Medication Reconcilliation Current Medication List: was personally reviewed by me Blood Pressure Screening Patient's blood pressure: Normal blood pressure Blood pressure disposition: Did not require urgent referral Consults Time Called: 2039 Consulting Physician: Dr. Linares, [facility] orthopedic surgery Returned Call: 2049 I discussed the patient's case with him. He will come evaluate the patient. Additional Consults: Time Called: 2116 Consulted Physician: Dr. Lance of [facility] Returned Call: 2122 Additional Comments: I spoke with him. We discussed the patient and his results. The patient will be further evaluated by him. Impression Primary Impression: Left leg cellulitis Additional Impressions: Fever CLL (chronic lymphocytic leukemia) Scribe Attestation The scribe's documentation has been prepared under my direct and personally reviewed by me in its entirety. I confirm that the note above accurately reflects all work, treatment, procedures, and medical decision making performed by me. Departure Information Dispostion Being Evaluated By Hospitalist Referrals Fabby Major D.O. (PCP) Patient Instructions My [facility] Problem Qualifiers Additional Impressions: Fever Fever type: unspecified Qualified Codes: R50.9 - Fever, unspecified
[2017-01-17] MEDS: VANCOMYCIN INJ 850 MG in SODIUM CHLORIDE 0.9% 250ML 250 ML IV STA (01:09)
[2017-01-17 02:02] LABS: URINE APPEARANCE CLEAR (CLEAR); URINE BILIRUBIN NEG (NEG); URINE COLOR YELLOW; URINE NITRITE NEG (NEG); URINE PH 6.5 (4.5-7.5); URINE SPECIFIC GRAVITY 1.018 (1.000-1.030); UROBILINOGEN NEG (NEG)
[2017-01-17 02:03] LABS: MANUAL MICROSCOPIC REQUIRED? NO; REVIEW REQ? NO
[2017-01-17] MEDS: PIPERACILL/TAZOBAC IV 4.5 GM in DEXTROSE 5% 100ML IV SCH ×3 (03:10→18:01)
[2017-01-17 05:14] VITALS: TEMP 37.8
[2017-01-17 06:04] VITALS: TEMP 37.6
[2017-01-17 07:14] VITALS: BP 112/63; PULSE 80; TEMP 37.2; O2SAT 95
[2017-01-17] MEDS: ACYCLOVIR 400 MG TAB PO SCH ×2 (08:19→20:57)
[2017-01-17] MEDS: RANITIDINE HCL 150 MG TAB PO SCH ×2 (08:19→20:57)
[2017-01-17 08:27] LABS: CREATININE 1.1 mg/dl (0.60-1.40)
--- NOTE | 2017-01-17 08:55 | Pharmacy Progress Note ---
Pharmacy Antibiotic Consult Date of Service: Jan 17, 2017. Pharmacy Dosing Scope Pharmacy is consulted to initiate vancomycin and zosyn IV dosing therapy, order appropriate labs and adjust drug dose/frequency. Subjective The patient is a 76 year old male admitted on Jan 16, 2017 at 21:26. Objective Height (Feet): 5 Height (Inches): 6.00 Weight (Kilograms): 75.400 Lab Results (24hrs): Test 01/16/17 19:05 01/16/17 19:13 01/17/17 01:15 01/17/17 07:30 White Blood Count 7.12 K/uL (4.8-10.8) Red Blood Count 4.10 M/uL (4.7-6.1) Hemoglobin 13.1 g/dL (14.0-18.0) Hematocrit 40.1 % (42-52) Mean Corpuscular Volume 97.8 fL (80-100) Mean Corpuscular Hemoglobin 32.0 pg (25-34) Mean Corpuscular Hemoglobin Concent 32.7 g/dl (32-36) Platelet Count 144 K/uL (130-400) Mean Platelet Volume 10.8 fL (7.4-10.4) Neutrophils (%) (Auto) 61.1 % Lymphocytes (%) (Auto) 31.7 % Monocytes (%) (Auto) 5.2 % Eosinophils (%) (Auto) 0.4 % Basophils (%) (Auto) 0.3 % Neutrophils # (Auto) 4.35 K/uL (1.4-6.5) Lymphocytes # (Auto) 2.26 K/uL (1.2-3.4) Monocytes # (Auto) 0.37 K/uL (0.11-0.59) Eosinophils # (Auto) 0.03 K/uL (0-0.5) Basophils # (Auto) 0.02 K/uL (0-0.2) RDW Standard Deviation 47.5 fL (36.4-46.3) RDW Coefficient of Variation 13.3 % (11.5-14.5) Immature Granulocyte % (Auto) 1.3 % Immature Granulocyte # (Auto) 0.09 K/uL (0.00-0.02) Erythrocyte Sedimentation Rate 3 mm/hr (0-14) Prothrombin Time 11.3 SECONDS (9.0-12.0) Prothromb Time International Ratio 1.1 (0.9-1.1) Activated Partial Thromboplast Time 27.7 SECONDS (21.0-31.0) Partial Thromboplastin Ratio 1.1 Sodium Level 138 mmol/L (136-145) Potassium Level 4.0 mmol/L (3.5-5.1) Chloride Level 107 mmol/L (98-107) Carbon Dioxide Level 26 mmol/L (21-32) Anion Gap 5.0 mmol/L (3-11) Blood Urea Nitrogen 18 mg/dl (7-18) Creatinine 1.40 mg/dl (0.60-1.40) 1.10 mg/dl (0.60-1.40) Est Creatinine Clear Calc Drug Dose 41.7 ml/min 53.1 ml/min Estimated GFR () 57.0 76.2 Estimated GFR (Non- 49.1 65.8 BUN/Creatinine Ratio 13.0 (10-20) Random Glucose 117 mg/dl (70-99) Calcium Level 8.5 mg/dl (8.5-10.1) Total Bilirubin 0.4 mg/dl (0.2-1) Aspartate Amino Transf (AST/SGOT) 17 U/L (15-37) Alanine Aminotransferase (ALT/SGPT) 15 U/L (12-78) Alkaline Phosphatase 90 U/L (45-117) C-Reactive Protein 0.68 mg/dl (0-0.29) Total Protein 6.0 gm/dl (6.4-8.2) Albumin 3.3 gm/dl (3.4-5.0) Globulin 2.7 gm/dl (2.5-4.0) Albumin/Globulin Ratio 1.2 (0.9-2) Lyme Disease IgG Antibody NEG (NEG) Lyme Disease IgM Antibody NEG (NEG) Bedside Lactic Acid Venous 1.17 mmol/L (0.90-1.70) Urine Color YELLOW Urine Appearance CLEAR (CLEAR) Urine pH 6.5 (4.5-7.5) Urine Specific [place] 1.018 (1.000-1.030) Urine Protein NEG (NEG) Urine Glucose (UA) NEG (NEG) Urine Ketones NEG (NEG) Urine Occult Blood NEG (NEG) Urine Nitrite NEG (NEG) Urine Bilirubin NEG (NEG) Urine Urobilinogen NEG (NEG) Urine Leukocyte Esterase NEG (NEG) Micro Results: Date/Time Source Procedure Growth Status 01/16/17 19:40 Blood Blood Culture Pending Received 01/16/17 19:05 Blood Blood Culture Pending Received 01/17/17 01:15 Urine , Clean Catch Urine Culture Pending Received Recent Pertinent Medications Acalabrutinib Assessment & Plan Assessment: Patient is a 76 year old male with history of CLL on Acalabrutinib, CAD s/p Stenting, HTN, CKD 3 Recent left hip arthroplasty in November of 2016 Presented with fever, redness around hip incision site Vancomycin/ zosyn for possible hip cellulitis/septic arthritis Plan: Loading dose of 1850 mg- given as 1000 mg and 850 mg Maintenance dose: 1250 mg q18H (16.5 mg/kg) PK: SCr 1.10, CrCl 53.1, Ke 0.048, T1/2 ~14 hours Goal trough level estimate 15-20 mcg/mL Trough level ordered for 01/18 @ 2330 Zosyn 4.5 gm q8H for CrCl > 20 mL/min Pharmacy will continue to follow and will adjust dose/frequency as necessary. Thank you
--- NOTE | 2017-01-17 09:04 | PROGRESS NOTE ---
DATE: 01/17/2017 DATE: 01/17/2017 CHIEF COMPLAINT: Cellulitis left hip. HISTORY OF PRESENT ILLNESS: Tom is a pleasant 76-year-old male who I did a left anterior total hip arthroplasty on about 6 weeks ago. His postoperative course has been uneventful. Yesterday he said he got a flu shot and later in the afternoon he felt feverish. He came to the Emergency Room thinking the flu shot was causing the symptoms. While in the ER, they noticed some cellulitis and scabbing around his left hip wound. He was admitted to the medicine service with concerns of cellulitis. He was seen in consultation by Dr. Linares and I was made aware. PHYSICAL EXAMINATION: LEFT HIP: There is a small open area in the proximal aspect of the wound near the hip flexor crease. It seems to be healing in nicely. I do not see any deep areas of fluid or any signs of abscess or deep infection. There is some cellulitis that is extending mostly posteriorly towards the gluteal area. This has been outlined by a marker. The erythema looks moderate. He is not having any pain in his groin or in his hip. He is neurovascularly intact. He is able to ambulate without much difficulty. IMPRESSION: Cellulitis of the left hip. PLAN: Will keep him on IV antibiotics. Once the erythema starts to improve, he should be stable for discharge to home on oral antibiotic treatment. Will continue to watch him throughout his stay.
[2017-01-17] MEDS: SODIUM CHLORIDE 0.9% 1000ML 1,000 ML IV SCH (11:25)
--- NOTE | 2017-01-17 13:47 | Medical Consult ---
Consultation Date of Consultation: Jan 17, 2017. Attending Physician: Dominique Logan M.D. Reason for Consultation: Left hip cellulitis, possible septic arthritis History of Present Illness 76-year-old male with history of CLL on chemotherapy, underwent left hip arthroplasty in November. Was doing reasonably well except for some mild pain, and yesterday went for his annual influenza vaccination. Several hours later, patient was noted to have fever and chills, and then was found to have erythema surrounding his surgical incision. He was admitted to the hospital and started on broad-spectrum antibiotics. He has been evaluated by Orthopedics, who found no evidence of deep infection. Patient feeling better today with resolution of fever, and denies any further chills. Minimal pain in his left hip. Tolerating antibiotics without apparent difficulty. Cultures are pending. 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 (3) Coronary Atherosclerosis Of [place] Coronary Vessel (4) Esophageal Reflux (5) Fever (6) History Of Tobacco Use (7) Hypertension Nos (8) Osteoarthritis of hip (9) Personal History Of Colonic Polyps Surgical Problems: (1) H/O adenoidectomy (2) H/O hernia repair (3) History of tonsillectomy (4) Hx of appendectomy Family History Diabetes mellitus FATHER Heart disease FATHER (passed at age 74 from [place]) Stroke FATHER Social History Smoking Status: Former Smoker Drug Use: none Marital Status: Housing Status: lives with family Occupation Status: employed Allergies Coded Allergies: No Known Allergies (Verified , 12/05/16) Current Inpatient Medications Current Inpatient Medications Medications (Trade) Dose Ordered Sig/Xiomara Route Start Time Stop Time Status Last Admin Dose Admin Sodium Chloride 1,000 ml @ 80 mls/hr [id number] IV 01/16/17 23:00 02/15/17 22:59 01/17/17 11:25 80 MLS/HR Piperacillin Sod/ Tazobactam Sod (Consult) 1 ea DAILY PRN N/A 01/16/17 23:00 02/15/17 22:59 Acetaminophen (Tylenol Tab) 650 mg Q4H PRN PO 01/16/17 23:00 02/15/17 22:59 Acyclovir (Zovirax Tab) 400 mg BID PO 01/17/17 09:00 02/16/17 08:59 01/17/17 08:19 400 MG Atorvastatin Calcium (Lipitor Tab) 20 mg QPM PO 01/17/17 21:00 02/16/17 20:59 Lorazepam (Ativan Tab) 0.5 mg BID PRN PO 01/16/17 23:00 02/15/17 22:59 Metoprolol Succinate (Toprol Xl Tab) 25 mg QPM PO 01/17/17 21:00 02/16/17 20:59 Oxycodone HCl (Roxicodone Immediate Rel Tab) 5 mg Q4H PRN PO 01/16/17 23:00 01/30/17 22:59 Ranitidine HCl (zANTac TAB) 150 mg BID PO 01/17/17 09:00 02/16/17 08:59 01/17/17 08:19 150 MG Tamsulosin HCl (Flomax Cap) 0.4 mg QPM PO 01/17/17 21:00 02/16/17 20:59 Vancomycin HCl (Consult) 1 ea UD PRN N/A 01/16/17 23:15 02/15/17 23:14 Piperacillin Sod/ Tazobactam Sod 4.5 gm/Dextrose 120 ml @ 30 mls/hr Q8H IV 01/17/17 02:00 01/27/17 01:59 01/17/17 09:37 30 MLS/HR Vancomycin HCl 1250 mg/Sodium Chloride 275 ml @ 125 mls/hr Q18H IV 01/17/17 18:00 02/28/17 17:59 Review of Systems All systems were reviewed and are negative except as per HPI Physical Exam Date Time Temp Pulse Resp B/P (MAP) Pulse Ox O2 Delivery O2 Flow Rate FiO2 01/17/17 07:38 Room Air 01/17/17 07:14 37.2 80 18 112/63 (79) 95 Room Air 01/17/17 06:04 37.6 01/17/17 05:14 37.8 01/16/17 23:25 Room Air 01/16/17 23:25 Room Air 01/16/17 23:15 36.9 80 18 103/58 (73) 96 Room Air 01/16/17 21:57 88 16 121/65 97 Room Air 01/16/17 20:03 92 16 93/55 97 Room Air 01/16/17 19:17 94 Room Air 01/16/17 19:12 94 01/16/17 18:23 37.0 87 20 109/56 95 Room Air General Appearance: WD/WN, no apparent distress Head: normocephalic, atraumatic Eyes: normal inspection, EOMI, sclerae normal ENT: normal ENT inspection, pharynx normal Neck: supple, no adenopathy, thyroid normal, trachea midline Respiratory/Chest: chest non-tender, lungs clear, normal breath sounds, no respiratory distress Cardiovascular: regular rate, rhythm, no gallop, no murmur Abdomen/GI: normal bowel sounds, non tender, soft, no organomegaly Back: normal inspection, no CVA tenderness Extremities/Musculoskelatal: no calf tenderness, normal capillary refill, non- tender Neurologic/Psych: alert, oriented x 3 Skin: normal color, no rash, + pertinent finding (Cellulitis surrounding left hip incision, no purulence) Lymphatic: no adenopathy Laboratory Results Date/Time Source Procedure Growth Status 01/16/17 19:40 Blood Blood Culture Pending Received 01/16/17 19:05 Blood Blood Culture Pending Received 01/17/17 01:15 Urine , Clean Catch Urine Culture Pending Received Last 24 Hours Test 01/16/17 19:05 01/16/17 19:13 01/17/17 01:15 01/17/17 07:30 White Blood Count 7.12 K/uL Red Blood Count 4.10 M/uL Hemoglobin 13.1 g/dL Hematocrit 40.1 % Mean Corpuscular Volume 97.8 fL Mean Corpuscular Hemoglobin 32.0 pg Mean Corpuscular Hemoglobin Concent 32.7 g/dl Platelet Count 144 K/uL Mean Platelet Volume 10.8 fL Neutrophils (%) (Auto) 61.1 % Lymphocytes (%) (Auto) 31.7 % Monocytes (%) (Auto) 5.2 % Eosinophils (%) (Auto) 0.4 % Basophils (%) (Auto) 0.3 % Neutrophils # (Auto) 4.35 K/uL Lymphocytes # (Auto) 2.26 K/uL Monocytes # (Auto) 0.37 K/uL Eosinophils # (Auto) 0.03 K/uL Basophils # (Auto) 0.02 K/uL RDW Standard Deviation 47.5 fL RDW Coefficient of Variation 13.3 % Immature Granulocyte % (Auto) 1.3 % Immature Granulocyte # (Auto) 0.09 K/uL Erythrocyte Sedimentation Rate 3 mm/hr Prothrombin Time 11.3 SECONDS Prothromb Time International Ratio 1.1 Activated Partial Thromboplast Time 27.7 SECONDS Partial Thromboplastin Ratio 1.1 Sodium Level 138 mmol/L Potassium Level 4.0 mmol/L Chloride Level 107 mmol/L Carbon Dioxide Level 26 mmol/L Anion Gap 5.0 mmol/L Blood Urea Nitrogen 18 mg/dl Creatinine 1.40 mg/dl 1.10 mg/dl Est Creatinine Clear Calc Drug Dose 41.7 ml/min 53.1 ml/min Estimated GFR () 57.0 76.2 Estimated GFR (Non- 49.1 65.8 BUN/Creatinine Ratio 13.0 Random Glucose 117 mg/dl Calcium Level 8.5 mg/dl Total Bilirubin 0.4 mg/dl Aspartate Amino Transf (AST/SGOT) 17 U/L Alanine Aminotransferase (ALT/SGPT) 15 U/L Alkaline Phosphatase 90 U/L C-Reactive Protein 0.68 mg/dl Total Protein 6.0 gm/dl Albumin 3.3 gm/dl Globulin 2.7 gm/dl Albumin/Globulin Ratio 1.2 Lyme Disease IgG Antibody NEG Lyme Disease IgM Antibody NEG Bedside Lactic Acid Venous 1.17 mmol/L Urine Color YELLOW Urine Appearance CLEAR Urine pH 6.5 Urine Specific [place] 1.018 Urine Protein NEG Urine Glucose (UA) NEG Urine Ketones NEG Urine Occult Blood NEG Urine Nitrite NEG Urine Bilirubin NEG Urine Urobilinogen NEG Urine Leukocyte Esterase NEG LEFT HIP UNILATERAL 2 VIEWS CLINICAL HISTORY: eval for fluid left hip pain COMPARISON: None. DISCUSSION: Total left upper placement good position. Good contact between prosthetic and underlying bone. No acute abnormality. There is no evidence for soft tissue swelling. IMPRESSION: Negative study status post total left hip arthroplasty The above report was generated using voice recognition software. It may contain grammatical, syntax or spelling errors. Electronically signed by: Ruperto Law M.D. 01/16/2017 8:12 PM Assessment & Plan Left hip cellulitis/surgical site infection following hip arthroplasty, appears to be having early good response to antibiotic therapy. Patient will be continued on with Vancomycin and Zosyn pending further culture results. Will follow.
[2017-01-17 15:38] VITALS: BP 110/58; PULSE 64; TEMP 37; O2SAT 96
[2017-01-17] MEDS: VANCOMYCIN INJ 1,250 MG in SODIUM CHLORIDE 0.9% 250ML 250 ML IV SCH (18:01)
--- NOTE | 2017-01-17 18:40 | Progress Note ---
Internal Med Progress Note Date of Service: Jan 17, 2017. Provider Documentation: SUBJECTIVE: no fever or chills no pain or discomfort on left hip area feels fine OBJECTIVE: Vital Signs-as noted below Exam: General-no sign of distress Eyes-sclera non icteric ENT-NAd Neck- no JVD Lungs-CTA Heart-regular S1/s2 Abdomen-soft ,non tender Extremities-area of erythema , induration around left hip surgical incision site , incision appears to be well healed, except for a few mm area open on upper /proximal incision , no drainage noted Neuro-no focal deficit , AAO x3 Lab data as noted below. 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 CELLULITIS OF LEFT HIP SURGICAL AREA pt is s/p left hip arthroplasty approx 6 weeks back had uneventful post op recovery developed area of erythema , warmth , induration around area of incision - no signs of sepsis; no fever or chills , normal - blood culture obtained , report pending - empiric Vanco and Zosyn IV appreciate input form Orthopedics -no evidence of wound infection or wound dehiscence surgical incision appears to be healing well localized superficial cellulitis ID eval appreciated recommend to cont to treat with broad spectrum Abx -till culture result is available - CLL diagnosed [address] Rhiannon Luke MD at the [facility] in [place], [place]. He has been part of a clinical research trial and has been taking Acalabrutinib since 2014. - - HOLD Acalabrutinib will contact Dr. Rhiannon Luke at [facility] re: Acalabrutinib in the setting of infection at [phone] /or [phone] - continue Zovirax CAD HISTORY OF STENT PLACEMENT no cardiac symptoms continue Metoprolol resumed Aspirin as no indication for orthopedic procedure HYPERTENSION continue Metoprolol resumed Lisinopril as BP stable CKD 3 stable follow Cr DVT PROPHYLAXIS ordered for Lub Q Lovenox FULL CODE PER PATIENT DISPO anticipate d/c at home lives with , independent Dr. Major for PCP [facility] in [place] for CLL Vital Signs: Date Time Temp Pulse Resp B/P (MAP) Pulse Ox O2 Delivery O2 Flow Rate FiO2 01/18/17 15:22 36.8 58 16 117/69 (85) 97 Room Air 01/18/17 15:20 Room Air 01/18/17 07:40 Room Air 01/18/17 07:25 36.6 72 20 129/69 (89) 97 Room Air 01/17/17 23:30 Room Air 01/17/17 23:20 37.2 66 18 121/66 (84) 96 Room Air 01/17/17 20:55 62 131/68 (89) 01/17/17 20:00 Room Air Lab Results: Results Past 24 Hours Test 01/18/17 06:52 Range/Units White Blood Count 3.86 4.8-10.8 K/uL Red Blood Count 3.79 4.7-6.1 M/uL Hemoglobin 12.3 14.0-18.0 g/dL Hematocrit 37.2 42-52 % Mean Corpuscular Volume 98.2 80-100 fL Mean Corpuscular Hemoglobin 32.5 25-34 pg Mean Corpuscular Hemoglobin Concent 33.1 32-36 g/dl Platelet Count 116 130-400 K/uL Mean Platelet Volume 10.4 7.4-10.4 fL Neutrophils (%) (Auto) 47.4 % Lymphocytes (%) (Auto) 43.3 % Monocytes (%) (Auto) 5.7 % Eosinophils (%) (Auto) 2.3 % Basophils (%) (Auto) 0.5 % Neutrophils # (Auto) 1.83 1.4-6.5 K/uL Lymphocytes # (Auto) 1.67 1.2-3.4 K/uL Monocytes # (Auto) 0.22 0.11-0.59 K/uL Eosinophils # (Auto) 0.09 0-0.5 K/uL Basophils # (Auto) 0.02 0-0.2 K/uL RDW Standard Deviation 48.0 36.4-46.3 fL RDW Coefficient of Variation 13.5 11.5-14.5 % Immature Granulocyte % (Auto) 0.8 % Immature Granulocyte # (Auto) 0.03 0.00-0.02 K/uL Sodium Level 143 136-145 mmol/L Potassium Level 3.9 3.5-5.1 mmol/L Chloride Level 109 98-107 mmol/L Carbon Dioxide Level 28 21-32 mmol/L Anion Gap 6.0 3-11 mmol/L Blood Urea Nitrogen 9 7-18 mg/dl Creatinine 1.00 0.60-1.40 mg/dl Est Creatinine Clear Calc Drug Dose 58.4 ml/min Estimated GFR () 85.6 Estimated GFR (Non- 73.8 BUN/Creatinine Ratio 9.2 10-20 Random Glucose 102 70-99 mg/dl Calcium Level 8.5 8.5-10.1 mg/dl
[2017-01-17] MEDS ORDERED: NITROGLYCERIN 0.4 MG SL PER TAB CHARGE UT PRN (19:00)
[2017-01-17] MEDS ORDERED: CALCIUM CARBONATE 500 MG CHEWABLE PO PRN (19:00)
[2017-01-17 20:55] VITALS: BP 131/68; PULSE 62
[2017-01-17] MEDS: ASPIRIN 325 MG ECTAB PO SCH (20:56)
[2017-01-17] MEDS: TAMSULOSIN HCL 0.4 MG CAP PO SCH (20:56)
[2017-01-17] MEDS: ATORVASTATIN 20 MG TAB PO SCH (20:56)
[2017-01-17] MEDS: LISINOPRIL 5 MG TAB PO SCH (20:57)
[2017-01-17] MEDS: METOPROLOL SUCC 25MG EXT REL TAB PO SCH (20:58)
[2017-01-17 23:20] VITALS: BP 121/66; PULSE 66; TEMP 37.2; O2SAT 96
[2017-01-18] MEDS: PIPERACILL/TAZOBAC IV 4.5 GM in DEXTROSE 5% 100ML IV SCH ×2 (01:44→09:44)
[2017-01-18 07:07] LABS: BASO % 0.5 %; BASO ABS # 0.02 K/uL (0-0.2); COMPLETE YES; EOS % 2.3 %; HEMATOCRIT 37.2 % (42-52); IG% 0.8 %; LYMPH % 43.3 %; LYMPH ABS # 1.67 K/uL (1.2-3.4); MEAN CELL VOLUME 98.2 fL (80-100); MEAN CORPUSCULAR HEMOGLOBIN 32.5 pg (25-34); MEAN CORPUSCULAR HGB CONC 33.1 g/dl (32-36); MEAN PLATELET VOLUME 10.4 fL (7.4-10.4); MONO % 5.7 %; NEUT % 47.4 %; PLATELET COUNT 116 K/uL (130-400); RED BLOOD COUNT 3.79 M/uL (4.7-6.1); WHITE BLOOD COUNT 3.86 K/uL (4.8-10.8)
[2017-01-18 07:25] VITALS: BP 129/69; PULSE 72; TEMP 36.6; O2SAT 97
[2017-01-18 07:37] LABS: BUN/CREATININE RATIO 9.2 (10-20); CALCIUM 8.5 mg/dl (8.5-10.1); POTASSIUM 3.9 mmol/L (3.5-5.1)
[2017-01-18] MEDS: ENOXAPARIN 40 MG/0.4 ML SYR SQ SCH (08:41)
[2017-01-18] MEDS: ACYCLOVIR 400 MG TAB PO SCH ×2 (08:42→20:50)
[2017-01-18] MEDS: RANITIDINE HCL 150 MG TAB PO SCH ×2 (08:42→20:50)
[2017-01-18] MEDS: ASPIRIN 325 MG ECTAB PO SCH ×2 (08:42→20:50)
[2017-01-18] MEDS: VANCOMYCIN INJ 1,250 MG in SODIUM CHLORIDE 0.9% 250ML 250 ML IV SCH (11:26)
[2017-01-18 15:22] VITALS: BP 117/69; PULSE 58; TEMP 36.8; O2SAT 97
--- NOTE | 2017-01-18 17:26 | Progress Note ---
Internal Med Progress Note Date of Service: Jan 18, 2017. Provider Documentation: SUBJECTIVE: mentions of having multiple loose bowel movement today no abdominal pain or nausea no fever or chills has minimum discomfort on left hip on walking OBJECTIVE: Vital Signs-as noted below Exam: General-no sign of distress Eyes-sclera non icteric ENT-NAd Neck- no JVD Lungs-CTA Heart-regular S1/s2 Abdomen-soft ,non tender Extremities-area of erythema much improved on left upper hip area Neuro-no focal deficit , AAO x3 Lab data as noted below. 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 CELLULITIS OF LEFT HIP SURGICAL AREA pt is s/p left hip arthroplasty approx 6 weeks back had uneventful post op recovery developed area of erythema , warmth , induration around area of incision - no signs of sepsis; no fever or chills , normal - blood cultures no growth - empiric Vanco and Zosyn IV D/w ID Dr Cochran will D/c Zosyn cont Vancomycin plan to change to Oral Abx tomorrow appreciate input form Orthopedics -no evidence of wound infection or wound dehiscence surgical incision appears to be healing well possible localized superficial cellulitis out pt follow up with Orhto as per schedule DIARRHEA : ordered for stool for c diff CLL diagnosed [address] Rhiannon Luke MD at the [facility] in [place], [place]. He has been part of a clinical research trial and has been taking Acalabrutinib since 2014. - - HOLD Acalabrutinib in setting of cellulitis will contact Dr. Rhiannon Luke at [facility] re: Acalabrutinib in the setting of infection at [phone] /or [phone] - continue Zovirax CAD HISTORY OF STENT PLACEMENT no cardiac symptoms continue Metoprolol resumed Aspirin as no indication for orthopedic procedure HYPERTENSION continue Metoprolol resumed Lisinopril as BP stable CKD 3 stable follow Cr DVT PROPHYLAXIS ordered for Lub Q Lovenox FULL CODE PER PATIENT DISPO anticipate d/c at home lives with , independent Dr. Major for PCP [facility] in [place] for CLL Vital Signs: Date Time Temp Pulse Resp B/P (MAP) Pulse Ox O2 Delivery O2 Flow Rate FiO2 01/18/17 15:22 36.8 58 16 117/69 (85) 97 Room Air 01/18/17 15:20 Room Air 01/18/17 07:40 Room Air 01/18/17 07:25 36.6 72 20 129/69 (89) 97 Room Air 01/17/17 23:30 Room Air 01/17/17 23:20 37.2 66 18 121/66 (84) 96 Room Air 01/17/17 20:55 62 131/68 (89) 01/17/17 20:00 Room Air Lab Results: Results Past 24 Hours Test 01/18/17 06:52 Range/Units White Blood Count 3.86 4.8-10.8 K/uL Red Blood Count 3.79 4.7-6.1 M/uL Hemoglobin 12.3 14.0-18.0 g/dL Hematocrit 37.2 42-52 % Mean Corpuscular Volume 98.2 80-100 fL Mean Corpuscular Hemoglobin 32.5 25-34 pg Mean Corpuscular Hemoglobin Concent 33.1 32-36 g/dl Platelet Count 116 130-400 K/uL Mean Platelet Volume 10.4 7.4-10.4 fL Neutrophils (%) (Auto) 47.4 % Lymphocytes (%) (Auto) 43.3 % Monocytes (%) (Auto) 5.7 % Eosinophils (%) (Auto) 2.3 % Basophils (%) (Auto) 0.5 % Neutrophils # (Auto) 1.83 1.4-6.5 K/uL Lymphocytes # (Auto) 1.67 1.2-3.4 K/uL Monocytes # (Auto) 0.22 0.11-0.59 K/uL Eosinophils # (Auto) 0.09 0-0.5 K/uL Basophils # (Auto) 0.02 0-0.2 K/uL RDW Standard Deviation 48.0 36.4-46.3 fL RDW Coefficient of Variation 13.5 11.5-14.5 % Immature Granulocyte % (Auto) 0.8 % Immature Granulocyte # (Auto) 0.03 0.00-0.02 K/uL Sodium Level 143 136-145 mmol/L Potassium Level 3.9 3.5-5.1 mmol/L Chloride Level 109 98-107 mmol/L Carbon Dioxide Level 28 21-32 mmol/L Anion Gap 6.0 3-11 mmol/L Blood Urea Nitrogen 9 7-18 mg/dl Creatinine 1.00 0.60-1.40 mg/dl Est Creatinine Clear Calc Drug Dose 58.4 ml/min Estimated GFR () 85.6 Estimated GFR (Non- 73.8 BUN/Creatinine Ratio 9.2 10-20 Random Glucose 102 70-99 mg/dl Calcium Level 8.5 8.5-10.1 mg/dl
[2017-01-18 20:45] VITALS: BP 113/63; PULSE 62
[2017-01-18] MEDS: METOPROLOL SUCC 25MG EXT REL TAB PO SCH (20:50)
[2017-01-18] MEDS: ATORVASTATIN 20 MG TAB PO SCH (20:50)
[2017-01-18] MEDS: TAMSULOSIN HCL 0.4 MG CAP PO SCH (20:50)
[2017-01-18] MEDS: LISINOPRIL 5 MG TAB PO SCH (20:51)
--- NOTE | 2017-01-18 22:09 | PROGRESS NOTE ---
DATE: 01/18/2017 CHIEF COMPLAINT: Cellulitis of left hip. PROGRESS: Tom was seen and examined at bedside today. Overall, he is doing well. He has no pain and said he has been up and ambulating. The erythema seems to be resolving. He is feeling well and has no complaints. PHYSICAL EXAMINATION: LEFT HIP: The erythema seems to be resolving some. There is a small area of macerated skin at the proximal aspect of the incision. It does not appear to be grossly infected. Blood cultures still show no growth to date. MRSA screen was negative. VITAL SIGNS: Stable on room air and he is afebrile. IMPRESSION: Cellulitis of the left hip. PLAN: He will get IV antibiotics throughout the day today. He is orthopedically stable for discharge tomorrow on oral antibiotic medications. I will see him in the office as scheduled on Thursday.
[2017-01-18 22:42] VITALS: BP 124/66; PULSE 64; TEMP 36.8; O2SAT 97
[2017-01-19] MEDS: VANCOMYCIN INJ 1,250 MG in SODIUM CHLORIDE 0.9% 250ML 250 ML IV SCH (05:32)
[2017-01-19 06:17] LABS: BASO % 0.6 %; BASO ABS # 0.02 K/uL (0-0.2); COMPLETE YES; EOS % 4.2 %; HEMATOCRIT 38.3 % (42-52); IG% 1.2 %; LYMPH % 42.3 %; LYMPH ABS # 1.41 K/uL (1.2-3.4); MEAN CELL VOLUME 97.7 fL (80-100); MEAN CORPUSCULAR HEMOGLOBIN 32.1 pg (25-34); MEAN CORPUSCULAR HGB CONC 32.9 g/dl (32-36); MEAN PLATELET VOLUME 10.5 fL (7.4-10.4); MONO % 5.4 %; NEUT % 46.3 %; PLATELET COUNT 128 K/uL (130-400); RED BLOOD COUNT 3.92 M/uL (4.7-6.1); WHITE BLOOD COUNT 3.33 K/uL (4.8-10.8)
[2017-01-19 06:54] VITALS: BP 114/65; PULSE 53; TEMP 36.5; O2SAT 98
[2017-01-19 06:55] LABS: CREATININE 1.1 mg/dl (0.60-1.40)
[2017-01-19] MEDS: ASPIRIN 325 MG ECTAB PO SCH (08:45)
[2017-01-19] MEDS: ACYCLOVIR 400 MG TAB PO SCH (08:45)
[2017-01-19] MEDS: ENOXAPARIN 40 MG/0.4 ML SYR SQ SCH (08:45)
[2017-01-19] MEDS: RANITIDINE HCL 150 MG TAB PO SCH (08:45)
--- NOTE | 2017-01-19 14:50 | Infectious Disease Progress Nt ---
Progress Note Date of Service Jan 19, 2017. Subjective Pt evaluation today including: conversation w/ patient, physical exam, chart review, lab review, review of studies, conversation w/ trousseau consultant, review of inpatient medication list No new comlaints. Remains afebrile. No drainage. Cultures remain negative. All Other Systems: Reviewed and Negative Medications Current Inpatient Medications Medications (Trade) Dose Ordered Sig/Xiomara Route Start Time Stop Time Status Last Admin Dose Admin Acetaminophen (Tylenol Tab) 650 mg Q4H PRN PO 01/16/17 23:00 02/15/17 22:59 Acyclovir (Zovirax Tab) 400 mg BID PO 01/17/17 09:00 02/16/17 08:59 01/19/17 08:45 400 MG Atorvastatin Calcium (Lipitor Tab) 20 mg QPM PO 01/17/17 21:00 02/16/17 20:59 01/18/17 20:50 20 MG Lorazepam (Ativan Tab) 0.5 mg BID PRN PO 01/16/17 23:00 02/15/17 22:59 Metoprolol Succinate (Toprol Xl Tab) 25 mg QPM PO 01/17/17 21:00 02/16/17 20:59 01/18/17 20:50 25 MG Oxycodone HCl (Roxicodone Immediate Rel Tab) 5 mg Q4H PRN PO 01/16/17 23:00 01/30/17 22:59 Ranitidine HCl (zANTac TAB) 150 mg BID PO 01/17/17 09:00 02/16/17 08:59 01/19/17 08:45 150 MG Tamsulosin HCl (Flomax Cap) 0.4 mg QPM PO 01/17/17 21:00 02/16/17 20:59 01/18/17 20:50 0.4 MG Vancomycin HCl (Consult) 1 ea UD PRN N/A 01/16/17 23:15 02/15/17 23:14 Vancomycin HCl 1250 mg/Sodium Chloride 275 ml @ 125 mls/hr Q18H IV 01/17/17 18:00 02/28/17 17:59 01/19/17 05:32 125 MLS/HR Aspirin (Ecotrin Tab) 325 mg BID PO 01/17/17 21:00 02/16/17 20:59 01/19/17 08:45 325 MG Calcium Carbonate (Tums Chew Tab) 500 mg DAILY PRN PO 01/17/17 19:00 02/16/17 18:59 Lisinopril (Zestril Tab) 5 mg QPM PO 01/17/17 21:00 02/16/17 20:59 01/18/17 20:51 5 MG Nitroglycerin (Nitrostat Tab) 0.4 mg UD PRN UT 01/17/17 19:00 02/16/17 18:59 Enoxaparin Sodium (Lovenox Inj) 40 mg QAM SQ 01/18/17 09:00 02/17/17 08:59 Objective Vital Signs Date Time Temp Pulse Resp B/P (MAP) Pulse Ox O2 Delivery O2 Flow Rate FiO2 01/19/17 07:28 Room Air 01/19/17 06:54 36.5 53 18 114/65 (81) 98 Room Air 01/18/17 23:20 Room Air 01/18/17 22:42 36.8 64 16 124/66 (85) 97 Room Air 01/18/17 20:45 62 113/63 (80) 01/18/17 15:22 36.8 58 16 117/69 (85) 97 Room Air 01/18/17 15:20 Room Air Physical Exam General Appearance: WD/WN, no apparent distress Eyes: normal inspection, EOMI ENT: normal ENT inspection, pharynx normal Neck: supple, no adenopathy, trachea midline Respiratory/Chest: lungs clear, normal breath sounds, no respiratory distress Cardiovascular: regular rate, rhythm, no gallop, no murmur Abdomen: normal bowel sounds, non tender, soft, no organomegaly Extremities: non-tender, no calf tenderness Neurologic/Psychiatric: alert, normal mood/affect, oriented x 3 Skin: normal color, no rash, + pertinent finding (improving erythema left hip) Lymphatic: no adenopathy Laboratory Results RUN DATE: 01/18/17 [facility] LAB PAGE 1 RUN TIME: 713 Specimen Inquiry PATIENT: RACHAEL RUIZ LOC: MICHAEL U # : [id number] AGE/SX: 76/M ROOM: [facility] REG : 01/16/[address]: Dominique Logan M.D. : 1940 BED: 2 DIS : STATUS: ADM IN TLOC: SPEC #: [id number] DELIA: 01/16/17 STATUS: RES REQ #: [id number] RECD: 01/16/[address]: Oscar Brown M.D. SOURCE: BLOOD ENTR: 01/16/[address] [facility] [address]: Fabby Major D.O. [facility]: BLOOD CULTURE Procedure Result Verified Site BLD CULT Preliminary 01/18/17-712 NO GROWTH TO DATE. Last 24 Hours Test 01/19/17 05:47 White Blood Count 3.33 K/uL Red Blood Count 3.92 M/uL Hemoglobin 12.6 g/dL Hematocrit 38.3 % Mean Corpuscular Volume 97.7 fL Mean Corpuscular Hemoglobin 32.1 pg Mean Corpuscular Hemoglobin Concent 32.9 g/dl Platelet Count 128 K/uL Mean Platelet Volume 10.5 fL Neutrophils (%) (Auto) 46.3 % Lymphocytes (%) (Auto) 42.3 % Monocytes (%) (Auto) 5.4 % Eosinophils (%) (Auto) 4.2 % Basophils (%) (Auto) 0.6 % Neutrophils # (Auto) 1.54 K/uL Lymphocytes # (Auto) 1.41 K/uL Monocytes # (Auto) 0.18 K/uL Eosinophils # (Auto) 0.14 K/uL Basophils # (Auto) 0.02 K/uL RDW Standard Deviation 47.5 fL RDW Coefficient of Variation 13.4 % Immature Granulocyte % (Auto) 1.2 % Immature Granulocyte # (Auto) 0.04 K/uL Creatinine 1.10 mg/dl Est Creatinine Clear Calc Drug Dose 53.1 ml/min Estimated GFR () 76.2 Estimated GFR (Non- 65.8 Assessment and Plan Left hip cellulitis/surgical site infection following hip arthroplasty, with good response to antibiotic therapy. Patient can be transitioned to oral Rx and recommend Bactrim DS 1 bid with cephalexin 500 mg qid. for 10 days. Will see in office prior to stopping Abx.
[2017-01-19 15:14] VITALS: BP 109/63; PULSE 62; TEMP 36.7; O2SAT 97
--- NOTE | 2017-01-19 15:34 | Discharge Instructions ---
Discharge Instructions Date of Service Jan 19, 2017. Admission Reason for Admission: FEVER Discharge Discharge Diagnosis / Problem: LEFT HIP AREA CELLULITIS /CLL Discharge Goals Goal(s): Decrease discomfort, Diagnostic testing, Therapeutic intervention Activity Recommendations Activity Limitations: resume your previous activity . Instructions / Follow-Up Instructions / Follow-Up HOSPITAL FOLLOW UP : 01/21/2017 9:30 AM Fabby Major DO [facility] LAB WORK : COMPLETE BLOOD COUNT /BASIC METABOLIC PANEL NEEDS TO BE CHECKED ON AT [facility] INFECTIOUS DISEASE FOLLOW UP WITH DR ETIENNE PRIOR TO DISCONTINUING ANTIBIOTIC PLEASE CALL HIS OFFICE FOR APPOINTMENT ORTHOPEDICS FOLLOW UP : DR DRAPER /DR WELCH NEXT Thursday01/21/17 Current Hospital Diet Patient's current hospital diet: Regular Diet Discharge Diet Recommended Diet: Regular Diet Pending Studies Studies pending at discharge: yes List of pending studies: LAB WORK : COMPLETE BLOOD COUNT /BASIC METABOLIC PANEL NEEDS TO BE CHECKED ON 01/21/[address] [facility] Medical Emergencies . Who to Call and When: Medical Emergencies: If at any time you feel your situation is an emergency, please call 911 immediately. . Non-Emergent Contact Non-Emergency issues call your: Primary Care Provider . . "Provider Documentation" section prepared by Dominique Logan. . VTE Core Measure Inpt VTE Proph given/why not?: SCD's
[2017-01-19] MEDS ORDERED: SULF800T23 PO (15:56)
[2017-01-19] MEDS ORDERED: CEPH500C2 PO (15:56)
[2017-01-19] MEDS ORDERED: CEPHALEXIN MONOHYDRATE 500 MG CAP PO ONE (16:00)
[2017-01-19] MEDS ORDERED: SULFAMETHOXAZOLE/TRIMETHOPRIM DS 800/160MG TAB PO ONE (16:00)
--- NOTE | 2017-01-19 16:35 | Progress Note ---
Internal Med Progress Note Date of Service: Jan 19, 2017. Provider Documentation: SUBJECTIVE: no pain or discomfort no fever or chills no episode of loose stool OBJECTIVE: Vital Signs-as noted below Exam: General-no sign of distress Eyes-sclera non icteric ENT-NAd Neck- no JVD Lungs-CTA Heart-regular S1/s2 Abdomen-soft ,non tender Extremities-minimum area of erythema on left upper hip area Neuro-no focal deficit , AAO x3 Lab data as noted below. 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 CELLULITIS OF LEFT HIP SURGICAL AREA pt is s/p left hip arthroplasty approx 6 weeks back had uneventful post op recovery developed area of erythema , warmth , induration around area of incision - no signs of sepsis; no fever or chills , normal - blood cultures no growth -was empiric Vanco and Zosyn IV appreciate input form ID Dr Cochran Abx will be changed to PO Bactrim DS BID /Keflex 500 mg QID for 10 days follow up at Dr Cochran office in a week prior to discontinuing Abx appreciate input form Orthopedics -no evidence of wound infection or wound dehiscence surgical incision appears to be healing well possible localized superficial cellulitis out pt follow up with Orhto as per schedule on Next Thursday01/21/17 LEUKOPENIA : repeat CBC with next physician visit DIARRHEA : resolved stool for c diff -negative CLL diagnosed [address] Rhiannon Luke MD at the [facility] in [place], [place]. He has been part of a clinical research trial and has been taking Acalabrutinib since 2014. - - HOLD Acalabrutinib in setting of cellulitis contacted Dr. Rhiannon Luke at [facility] re: Acalabrutinib in the setting of infection at [phone] /or [phone] - continue Zovirax pt is asked to continue to hold Acalabrutinib till antibiotics are completed and ID eval to assess complete resolution of Cellulitis CAD HISTORY OF STENT PLACEMENT no cardiac symptoms continue Metoprolol resumed Aspirin as no indication for orthopedic procedure HYPERTENSION continue Metoprolol resumed Lisinopril as BP stable CKD 3 stable follow Cr DVT PROPHYLAXIS Lub Q Lovenox FULL CODE PER PATIENT DISPO stable to be discharged home today lives with , independent Dr. Major for PCP follow up with ID Dr Cochran Follow up with Orthopedics Dr Schwartz Pt follows at [facility] in [facility] updated over phone Vital Signs: Date Time Temp Pulse Resp B/P (MAP) Pulse Ox O2 Delivery O2 Flow Rate FiO2 01/19/17 15:45 Room Air 01/19/17 15:14 36.7 62 18 109/63 (78) 97 Room Air 01/19/17 07:28 Room Air 01/19/17 06:54 36.5 53 18 114/65 (81) 98 Room Air 01/18/17 23:20 Room Air 01/18/17 22:42 36.8 64 16 124/66 (85) 97 Room Air 01/18/17 20:45 62 113/63 (80) Lab Results: Results Past 24 Hours Test 01/19/17 05:47 Range/Units White Blood Count 3.33 4.8-10.8 K/uL Red Blood Count 3.92 4.7-6.1 M/uL Hemoglobin 12.6 14.0-18.0 g/dL Hematocrit 38.3 42-52 % Mean Corpuscular Volume 97.7 80-100 fL Mean Corpuscular Hemoglobin 32.1 25-34 pg Mean Corpuscular Hemoglobin Concent 32.9 32-36 g/dl Platelet Count 128 130-400 K/uL Mean Platelet Volume 10.5 7.4-10.4 fL Neutrophils (%) (Auto) 46.3 % Lymphocytes (%) (Auto) 42.3 % Monocytes (%) (Auto) 5.4 % Eosinophils (%) (Auto) 4.2 % Basophils (%) (Auto) 0.6 % Neutrophils # (Auto) 1.54 1.4-6.5 K/uL Lymphocytes # (Auto) 1.41 1.2-3.4 K/uL Monocytes # (Auto) 0.18 0.11-0.59 K/uL Eosinophils # (Auto) 0.14 0-0.5 K/uL Basophils # (Auto) 0.02 0-0.2 K/uL RDW Standard Deviation 47.5 36.4-46.3 fL RDW Coefficient of Variation 13.4 11.5-14.5 % Immature Granulocyte % (Auto) 1.2 % Immature Granulocyte # (Auto) 0.04 0.00-0.02 K/uL Creatinine 1.10 0.60-1.40 mg/dl Est Creatinine Clear Calc Drug Dose 53.1 ml/min Estimated GFR () 76.2 Estimated GFR (Non- 65.8 Microbiology Results 01/18/17 MRSA DNA Surveillance Screen - Final, Complete Specimen Negative for MRSA by DNA Probe 01/18/17 C.difficile Toxin B Gene (PCR) - Final, Complete No C. difficile toxin B gene detected
--- NOTE | 2017-01-19 16:38 | Discharge Summary ---
Discharge Summary Date of Service Jan 19, 2017. Discharge Summary Admission Date: Jan 16, 2017 at 21:26 Discharge Date: Jan 20, 2017 Discharge Disposition: Home Principal Diagnosis: LEFT HIP AREA CELLULITIS /CLL Procedures: XRAY OF HIP : LEFT HIP UNILATERAL 2 VIEWS CLINICAL HISTORY: eval for fluid left hip pain COMPARISON: None. DISCUSSION: Total left upper placement good position. Good contact between prosthetic and underlying bone. No acute abnormality. There is no evidence for soft tissue swelling. IMPRESSION: Negative study status post total left hip arthroplasty The above report was generated using voice recognition software. It may contain grammatical, syntax or spelling errors. Consultations: ORTHOPEDICS INFECTIOUS DISEASE Medication Reconciliation New Medications: Cephalexin Monohydrate (Keflex) 500 Mg Cap 500 MG PO QID for 10 Days, #40 CAP Sulfamethoxazole-Trimethoprim (Bactrim Ds 800MG/160MG) 1 Tab Tab 1 TAB PO BID for 10 Days, #20 TAB Continued Medications: Acetaminophen Tab (Tylenol) 325 Mg Tab 325 MG PO PRN, TAB Acyclovir (Zovirax) 800 Mg Tab 400 MG PO BID for 10 Days, #10 TAB Aspirin (Aspirin) 325 Mg Ectab 325 MG PO BID, #84 Atorvastatin (Lipitor) 20 Mg Tab 20 MG PO QPM, TAB Calcium Carbonate (Tums) 500 Mg Chew 1 TAB PO DAILY PRN for PRN Lisinopril (Zestril) 10 Mg Tab 5 MG PO QPM, TAB Lorazepam (Ativan) 0.5 Mg Tab 0.5 MG PO BID PRN for Anxiety, TAB Metoprolol Succ (Toprol Xl) (Toprol-Xl) 25 Mg Tabcr 25 MG PO QPM, 0 Refills Nitroglycerin (Nitrostat) 0.4 Mg Tab 0.4 MG UT PRN, 0 Refills Oxycodone HCl (Oxycodone HCl) 5 Mg Tab 5-10 MG PO Q4H PRN for Pain, #30 TAB Ranitidine (Zantac) 150 Mg Tab 150 MG PO BID, TAB Tamsulosin Hcl (Flomax) 0.4 Mg Cap 0.4 MG PO QPM, CAP Discontinued Medications: [[id number]] () 1 CAP PO Q12 CLINICAL TRIAL DRUG, PER PATIENT. 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 Patient follows with Dr. Major for PCP and Dr. Rhiannon Luke MD at the [facility] in [place], [place]. He has been part of a clinical research trial and has been taking Acalabrutinib since 2014. Patient states that he has been doing fine since his left hip arthroplasty last November 2016. Recently, patient has been having intermittent left hip pain which he attributes to not using his cane. Today, patient received a flu vaccine around 1pm and 2 hours later, suddenly developed severe chills. His temp was 101. He then call the [facility] and was advised to go to the ER. At the, ER patient was received afebrile, with no leukocytosis. Left hip surgical site showed healing incision site with surrounding erythema extending to the left buttock Hip Xray: DISCUSSION: Total left upper placement good position. Good contact between prosthetic and underlying bone. No acute abnormality. There is no evidence for soft tissue swelling. IMPRESSION: Negative study status post total left hip arthroplasty Patient was evaluated by [facility] c/o Dr. Linares and was advised admission. On exam, patient seen resting in bed, comfortable. State he has minimal pain on the left hip. Denies headache, dizziness, nausea, sore throat, nasal congestion, chest pain, cough, abdominal pain, problems with urination or BM. No other symptoms Physical Exam (per Admitting): General Appearance: WD/WN, no apparent distress Head: normocephalic, atraumatic Eyes: normal inspection, EOMI, sclerae normal ENT: normal ENT inspection, hearing grossly normal, pharynx normal Neck: supple, no adenopathy, thyroid normal, no JVD, trachea midline Respiratory/Chest: chest non-tender, lungs clear, normal breath sounds, no respiratory distress, no accessory muscle use Cardiovascular: regular rate, rhythm, no edema, no JVD, no murmur, normal peripheral pulses Abdomen/GI: normal bowel sounds, non tender, soft, no organomegaly Back: normal inspection, no CVA tenderness Extremities/Musculoskelatal: no calf tenderness, no pedal edema, + pertinent finding (left hip: surigical incision well healed, small opening on the proximal aspect but no discharge, (+) surrounding erythema extending to left buttock, no tenderness, mild warmth) 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 CELLULITIS OF LEFT HIP SURGICAL AREA pt is s/p left hip arthroplasty approx 6 weeks back had uneventful post op recovery developed area of erythema , warmth , induration around area of incision - no signs of sepsis; no fever or chills , normal - blood cultures no growth -was empiric Vanco and Zosyn IV appreciate input form ID Dr Cochran Abx will be changed to PO Bactrim DS BID /Keflex 500 mg QID for 10 days follow up at Dr Cochran office in a week prior to discontinuing Abx appreciate input form Orthopedics -no evidence of wound infection or wound dehiscence surgical incision appears to be healing well possible localized superficial cellulitis out pt follow up with Orhto as per schedule on Next Thursday01/21/17 LEUKOPENIA : repeat CBC with next physician visit DIARRHEA : resolved stool for c diff -negative CLL diagnosed [address] Rhiannon Luke MD at the [facility] in [place], [place]. He has been part of a clinical research trial and has been taking Acalabrutinib since 2014. - - HOLD Acalabrutinib in setting of cellulitis contacted Dr. Rhiannon Luke at [facility] re: Acalabrutinib in the setting of infection at [phone] /or [phone] - continue Zovirax pt is asked to continue to hold Acalabrutinib till antibiotics are completed and ID eval to assess complete resolution of Cellulitis CAD HISTORY OF STENT PLACEMENT no cardiac symptoms continue Metoprolol resumed Aspirin as no indication for orthopedic procedure HYPERTENSION continue Metoprolol resumed Lisinopril as BP stable CKD 3 stable follow Cr DVT PROPHYLAXIS Lub Q Lovenox FULL CODE PER PATIENT DISPO stable to be discharged home today lives with , independent Dr. Major for PCP follow up with ID Dr Ccohran Follow up with Orthopedics Dr Schwartz Pt follows at [facility] in [place] for CLL-Cancer Center updated over phone Total time spent on discharge = 40 MINS This includes examination of the patient, discharge planning, medication reconciliation, and communication with other providers. Discharge Instructions Discharge Instructions Date of Service Jan 19, 2017. Admission Reason for Admission: FEVER Discharge Discharge Diagnosis / Problem: LEFT HIP AREA CELLULITIS /CLL Discharge Goals Goal(s): Decrease discomfort, Diagnostic testing, Therapeutic intervention Activity Recommendations Activity Limitations: resume your previous activity . Instructions / Follow-Up Instructions / Follow-Up HOSPITAL FOLLOW UP : 01/21/2017 9:30 AM Fabby Major DO [facility] LAB WORK : COMPLETE BLOOD COUNT /BASIC METABOLIC PANEL NEEDS TO BE CHECKED ON AT [facility] INFECTIOUS DISEASE FOLLOW UP WITH DR COCHRAN PRIOR TO DISCONTINUING ANTIBIOTIC PLEASE CALL HIS OFFICE FOR APPOINTMENT ORTHOPEDICS FOLLOW UP : DR DRAPER /DR WELCH NEXT Thursday01/21/17 Current Hospital Diet Patient's current hospital diet: Regular Diet Discharge Diet Recommended Diet: Regular Diet Pending Studies Studies pending at discharge: yes List of pending studies: LAB WORK : COMPLETE BLOOD COUNT /BASIC METABOLIC PANEL NEEDS TO BE CHECKED ON 01/21/17 AT [facility] Medical Emergencies . Who to Call and When: Medical Emergencies: If at any time you feel your situation is an emergency, please call 911 immediately. . Non-Emergent Contact Non-Emergency issues call your: Primary Care Provider . . "Provider Documentation" section prepared by Dominique Logan. . VTE Core Measure Inpt VTE Proph given/why not?: SCD's Additional Copies To Fabby Major D.O. Bell, Evan T MD
[2017-01-19 16:57] VITALS: BP 109/63; PULSE 62; TEMP 36.7; O2SAT 97
[2017-01-19] MEDS ORDERED: VANCOMYCIN TROUGH ONE (23:30)
== END 2017-01-19 18:06 | disposition home or self-care (01) | DRG 603 ==
LOC: C.EDB 18:20 → C.MSN 21:26 → CANBEDREQ 21:32 → ENRESERV 22:15
PROVIDERS: ADMIT Internal Medicine; ATTEND Hospitalist
DX: L03.116 Cellulitis of left lower limb (principal); C91.10 Chronic lymphocytic leukemia of B-cell type not having achieved remission; Z96.642 Presence of left artificial hip joint; I25.10 Atherosclerotic heart disease of native coronary artery without angina pectoris; I12.9 Hypertensive chronic kidney disease with stage 1 through stage 4 chronic kidney disease, or unspecified chronic kidney disease; N18.3 Chronic kidney disease, stage 3 (moderate); D72.819 Decreased white blood cell count, unspecified; R19.7 Diarrhea, unspecified; N40.0 Benign prostatic hyperplasia without lower urinary tract symptoms; K21.9 Gastro-esophageal reflux disease without esophagitis; E78.5 Hyperlipidemia, unspecified; I35.8 Other nonrheumatic aortic valve disorders; Z95.5 Presence of coronary angioplasty implant and graft; Z86.73 Personal history of transient ischemic attack (TIA), and cerebral infarction without residual deficits; Z87.891 Personal history of nicotine dependence; Z90.49 Acquired absence of other specified parts of digestive tract; Z79.82 Long term (current) use of aspirin; Z79.899 Other long term (current) drug therapy; Z83.3 Family history of diabetes mellitus; Z82.49 Family history of ischemic heart disease and other diseases of the circulatory system; Z82.3 Family history of stroke